=== PATIENT | female | born 1985 | race American Indian/Alaskan Native ===

== ENCOUNTER 2018-01-25 11:26 | Emergency (ER) | payer BC ==
[2018-01-25] MEDS ORDERED: CATAPRES PO ONE (12:35)
[2018-01-25 13:08] LABS: Basophils % (Auto) 0.6 % (0.0-1.8); Eosinophils # (Auto) 0.1 K/mm3 (0.0-0.4); Eosinophils % (Auto) 1.6 % (0.0-4.3); Hematocrit 35.1 % (30.3-42.9); Hemoglobin 11.9 gm/dl (10.1-14.3); Lymphocytes % (Auto) 32.1 % (13.4-35.0); Mean Corpuscular HGB Conc 34 % (30-34); Mean Corpuscular Hemoglobin 29 pg (28-32); Mean Corpuscular Volume 84 fl (79-97); Monocytes # (Auto) 0.4 K/mm3 (0.0-0.8); Monocytes % (Auto) 5.8 % (0.0-7.3); Platelet Count 267 K/mm3 (140-440); Red Blood Count 4.17 M/mm3 (3.65-5.03); Red Cell Distribution Width 15.9 % (13.2-15.2)
[2018-01-25 13:18] LABS: INR 0.86 (0.87-1.13)
[2018-01-25 13:19] LABS: Partial Thromboplastin Time 31.9 Sec. (24.2-36.6)
[2018-01-25 13:28] LABS: Alanine Aminotransferase 11 units/L (7-56); Albumin 4.4 g/dL (3.9-5); BUN/Creatinine Ratio 16; Blood Urea Nitrogen 11 mg/dL (7-17); Calcium 9.5 mg/dL (8.4-10.2); Hemolysis Index 61
[2018-01-25 13:36] LABS: Bilirubin,Direct < 0.2 mg/dL (0-0.2)
--- NOTE | 2018-01-25 15:41 | Emergency Department Report ---
Blank Doc - Documentation Documentation: 32 yo female with a past medical history of hypertension presents to the hospital complaining of dizziness and headache since yesterday. Patient describes it as a spinning sensation. She denies nausea, vomiting, focal weakness, focal numbness. Patient complain of a headache that resolved after Clonine 0.2 mg prior to my evaluation. Patient also has a second complaint of vaginal spotting, cramping, and bleeding despite completing a normal menstral cylce earlier this month. labs reviewed test pending Clonidine received 3 hour prior repeat bp pending ct head pending (awaiting result) midlevel to follow
[2018-01-25 16:02] LABS: HCG Qualitative,Urine Positive (Negative)
[2018-01-25 17:31] LABS: Bacteria,Urine 1+ /HPF (Negative); Bilirubin,Urine NEG (Negative); Blood,Urine MOD (Negative); Color,Urine Yellow (Yellow); Mucus,Urine FEW /HPF; Protein,Urine <15 mg/dL mg/dL (Negative); Urobilinogen,Urine < 2.0 mg/dL (<2.0)
--- NOTE | 2018-01-25 17:51 | Emergency Department Report ---
ED HPI - General Chief complaint: Dizziness Stated complaint: DIZZY Time Seen by Provider: 01/25/18 15:24 Source: patient Mode of arrival: Ambulatory Limitations: No Limitations - History of Present Illness Initial comments: This is a 32-year-old female nontoxic, well nourished in appearance, no acute signs of distress presents to the ED with c/o of vaginal bleeding with abdominal cramping x2 days. Patient stated that her main complaint was headache with dizziness but stated that headache has subsided after medications in the ED. Patient denies thunderclap headache. Denies any head trauma. Described headache as aching diffusely been resolved. Patient denies any blurry vision or visual changes. Patient stated yesterday she noticed some spotting and today had spotting all day. Patient denies any abdominal or pelvic pain. Patient denies any nausea, vomiting, chest pain, shortness of breathe, fever, chills, headache, stiff neck, numbness, tingling. Patient denies any urinary symptoms. Patient states allergies to Cephalexin and griseofulvin. PMH includes HTN which she has not taken her medication for 7 months. MD Complaint: abdominal pain, vaginal bleeding -: days(s) (2) Location: pelvis Radiation: none Severity: mild Severity scale (0 -10): 3 Quality: cramping Consistency: constant Improves with: none Worsens with: none Associated symptoms: vaginal bleeding. denies: nausea/vomiting, vaginal discharge, abdominal pain, dysuria, headache, vision changes, malaise, dysparuenia, rash, seizure, shortness of breath, syncope, weakness Vaginal bleeding: light :: Yes Pre-winnie care: none - Related Data : 4 Para: 6 Previous Rx's Medication Instructions Recorded Last Taken Type Labetalol [Normodyne TAB] 100 mg PO BID #60 tablet 01/25/18 Unknown Rx Allergies Allergy/AdvReac Type Severity Reaction Status Date / Time cephalexin [From Keflex] Allergy Swelling Verified 01/25/18 12:17 [email or web address] Allergy Swelling Verified 01/25/18 12:17 ED Review of Systems ROS: Stated complaint: DIZZY Other details as noted in HPI Constitutional: denies: chills, fever Eyes: denies: eye pain, eye discharge, vision change ENT: denies: ear pain, throat pain Respiratory: denies: cough, shortness of breath, wheezing Cardiovascular: denies: chest pain, palpitations Endocrine: no symptoms reported Gastrointestinal: abdominal pain. denies: nausea, diarrhea Genitourinary: denies: urgency, dysuria, discharge Musculoskeletal: denies: back pain, joint swelling, arthralgia Skin: denies: rash, lesions Neurological: denies: headache, weakness, paresthesias Psychiatric: denies: anxiety, depression Hematological/Lymphatic: denies: easy bleeding, easy bruising ED Past Medical Hx - Past Medical History Previous Medical History?: Yes Hx Hypertension: Yes Additional medical history: Vaginal delivery x 4 - Surgical History Past Surgical History?: No - Social History Smoking Status: Current Every Day Smoker Substance Use Type: Alcohol, Prescribed - Medications Home Medications: Home Medications Medication Instructions Recorded Confirmed Last Taken Type Labetalol [Normodyne TAB] 100 mg PO BID #60 tablet 01/25/18 Unknown Rx ED Physical Exam - General Limitations: No Limitations General appearance: alert, in no apparent distress - Head Head exam: Present: atraumatic, normocephalic - Eye Eye exam: Present: normal appearance Pupils: Present: normal accommodation - ENT ENT exam: Present: normal exam, mucous membranes moist - Neck Neck exam: Present: normal inspection, full ROM. Absent: tenderness, meningismus, lymphadenopathy - Respiratory Respiratory exam: Present: normal lung sounds bilaterally. Absent: respiratory distress, wheezes, rales, rhonchi, stridor, chest wall tenderness, accessory muscle use, decreased breath sounds, prolonged expiratory - Cardiovascular Cardiovascular Exam: Present: regular rate, normal rhythm, normal heart sounds. Absent: bradycardia, tachycardia, irregular rhythm, systolic murmur, diastolic murmur, rubs, gallop - GI/Abdominal GI/Abdominal exam: Present: soft, normal bowel sounds. Absent: distended, tenderness, guarding, rebound, rigid, diminished bowel sounds - Rectal Rectal exam: Present: deferred - Extremities Exam Extremities exam: Present: normal inspection, full ROM, normal capillary refill - Back Exam Back exam: Present: normal inspection, full ROM. Absent: tenderness, CVA tenderness (R), CVA tenderness (L), paraspinal tenderness, vertebral tenderness - Neurological Exam Neurological exam: Present: alert, oriented X3, CN II-XII intact, normal gait - Expanded Neurological Exam Expanded Patient oriented to: Present: person, place, time Cranial nerves: EOM's Intact: Normal, Gag Reflex: Normal, Facial Sensation: Normal Cerebellar function: Finger to Nose: Normal Upper motor neuron: Pronator Drift: Normal, Sensory Extinction: Normal Sensory exam: Upper Extremity Light Touch: Normal, Upper Extremity Pin Prick: Normal, Upper Extremity Temperature: Normal, UE 2 Point Discrimination: Normal, Lower Extremity Light Touch: Normal, Lower Extremity Pin Prick: Normal, Lower Extremity Temperature: Normal, LE 2 Point Discrimination: Normal Motor strength exam: RUE: 5, LUE: 5, RLE: 5, LLE: 5 Best Eye Response ([place]): (4) open spontaneously Best Motor Response ([place]): (6) obeys commands Best Verbal Response ([place]): (5) oriented Kaleb Total: 15 - Psychiatric Psychiatric exam: Present: normal affect, normal mood - Skin Skin exam: Present: warm, dry, intact, normal color. Absent: rash ED Course Vital Signs 01/25/18 01/25/18 01/25/18 12:17 12:39 14:07 Temperature 98.7 F 97.7 F Pulse Rate 74 74 64 Respiratory 20 18 Rate Blood Pressure 197/131 197/131 Blood Pressure 157/117 [Left] O2 Sat by Pulse 99 Oximetry 01/25/18 17:30 Temperature 98.8 F Pulse Rate 88 Respiratory 18 Rate Blood Pressure Blood Pressure 162/91 [Left] O2 Sat by Pulse 98 Oximetry - Reevaluation(s) Reevaluation #1: 01/25/18 17:56 Patient is speaking in full sentences with no signs of distress noted. - Consultations Consultation #1: 01/25/18 17:57 Patient has been consulted with Dr. Paredes about patient history, physical exam, and labs/US report and examined and screened patient and agrees to ED plan of care and discharge plan of care. Consultation #2: 01/25/18 19:43 King Samuel from [employer] [facility] consulted but no answer but his business support manager Suzanne Sands was discussed with about patient history, physical exam, and labs /US report and stated it is okay to discharge patient on Labetolol and f/u in 2 days for repeat HCG. ED Medical Decision Making - Lab Data Result diagrams: 01/25/18 13:01 01/25/18 13:01 - Medical Decision Making This is a 32-year-old female presents with threatened miscarriage and HTN. Patient is stable and was examined by me and Dr. Paredes. Normal abdominal exam. US OB obtained and dictated by the radiologist. Quantative serum test obtained. Patient is neurologically stable. There is no stiff neck or neck pain. Vital signs are stable. Patient is afebrile. Headache subsided. Blood pressure decreased after treatment. Patient notified of the US report with no questions noted by the patient. Patient was instructed to return in 2 days to follow up with a PODIATRIST ASSISTANT or to emergency room for a reevaluation of serum quantative test with possible ultrasound. RH factor positive. Labs within normal limits. EKG normal sinus rhythm. I will start patient on Labetolol 100 mg BID. PAtient was instructed to keep a daily dairy of blood pressure and present it to primary care doctor. UA normal. Patient was referred to Follow-up with a PODIATRIST ASSISTANT in 3-5 days or if symptoms worsen and continue return to emergency room as soon as possible. At time of discharge, the patient does not seem toxic or ill in appearance. No acute signs of distress noted. Patient agrees to discharge treatment plan of care. No further questions noted by the patient. Critical care attestation.: If time is entered above; I have spent that time in minutes in the direct care of this critically ill patient, excluding procedure time. ED Disposition Clinical Impression: Threatened miscarriage Hypertension Qualifiers: Hypertension type: unspecified Qualified Code(s): I10 - Essential (primary) hypertension Disposition: DC-01 TO HOME OR SELFCARE Is pt being admited?: No Does the pt Need Aspirin: No Condition: Stable Instructions: Labetalol (By mouth), Threatened Miscarriage (ED), Hypertension ( ED) Additional Instructions: Follow-up with a PODIATRIST ASSISTANT and primary care doctor doctor in 2 days or come to the ED for a repeat quantitative test/possible ultrasound or if symptoms worsen and continue return to emergency room as soon as possible. Keep a daily diary of your blood pressure and present it to your primary care doctor in 2 days. Prescriptions: Labetalol [Normodyne TAB] 100 mg PO BID #60 tablet Referrals: PRIMARY JOSE, [Primary Care Provider] - 3-5 Days CAMRON SHOEMAKER MD [Staff Physician] - 3-5 Days LOLA HAYWARD MD [Staff Physician] - 3-5 Days [facility] [Provider Group] - 3-5 Days [facility] [Outside] - 3-5 Days Forms: Work/School Release Form(ED)
--- NOTE | 2018-01-25 17:51 | Ultrasound Report ---
FINAL REPORT EXAM: US OB < = 14 WEEKS FETUS HISTORY: vag spotting, LMP 01/08/2018 with clinical age 2 weeks 3 days and EDC 10/15/2018. Beta HCG quantitation 2282 corresponding to 4-5 weeks TECHNIQUE: Ultrasound of the pelvis using transabdominal and transvaginal imaging PRIORS: None. FINDINGS: Uterus: Uterus is enlarged in size and normal and homogeneous in echogenicity without focal fibroid formation. The uterus measures 9.8 x 5.4 x 6.5 cm in size. No evidence for intrauterine is identified. Endometrial stripe: Normal and uniform in thickness measuring 7.7 mm. No fluid in the endometrial canal is seen. Ovaries: Both ovaries appear normal in size and echogenicity with normal blood flow bilaterally. The right ovary measures 2.8 x 2.1 x 2.0 cm and the left ovary measures 2.9 x 2.5 x 3.4 cm in size. In the left ovary, there is a complex cystic focus measuring 1.9 x 1.7 x 1.5 cm. This demonstrates a partial "ring of fire" appearance on color flow and probably represents a corpus luteum. However, without the presence of an intrauterine , ectopic is not excluded. Serial quantitative beta HCG levels may be helpful to exclude ectopic . Other: There is no evidence for solid adnexal mass or free fluid in the cul-de-sac seen. IMPRESSION: 1. No evidence for intrauterine identified. 2. Cystic focus in the left ovary which has the ultrasound appearance suggesting a probable corpus luteum. However, with a lack of intrauterine , ectopic is not entirely excluded. Serial quantitative beta HCG levels may be helpful. 3. No evidence for free fluid in the cul-de-sac is seen.
[2018-01-26 03:30] VITALS: BP 149/99
== END 2018-01-25 20:05 | disposition home or self-care (01) ==
LOC: ED 14:08
DX: O20.0 Threatened abortion (principal); I10 Essential (primary) hypertension; F17.200 Nicotine dependence, unspecified, uncomplicated; Z88.1 Allergy status to other antibiotic agents; Z88.8 Allergy status to other drugs, medicaments and biological substances; Z3A.01 Less than 8 weeks gestation of pregnancy
CPT/HCPCS: 36415; 76801; 76817; 80048; 80074; 81001; 81025; 83880; 84484; 84702; 85025; 85610; 85670; 85730; 86900; 86901; 93005; 93010; 99285

== ENCOUNTER → 2018-02-09 02:32 | Emergency (ER) | payer BC | END | disposition left against medical advice (07) | LOC: ED 02:32 | DX: R10.9 Unspecified abdominal pain (principal); Z53.21 Procedure and treatment not carried out due to patient leaving prior to being seen by health care provider ==

== ENCOUNTER 2018-03-30 21:44 | Emergency (ER) | payer BC | END 2018-03-30 22:20 | disposition left against medical advice (07) | LOC: ED 21:44 | DX: M79.1 Myalgia (principal); R07.0 Pain in throat; R05 Cough; Z88.1 Allergy status to other antibiotic agents; Z53.21 Procedure and treatment not carried out due to patient leaving prior to being seen by health care provider ==

== ENCOUNTER 2018-10-26 19:23 | Emergency (ER) | payer BC | END 2018-10-26 21:17 | disposition left against medical advice (07) | LOC: ED 19:23 | DX: R11.2 Nausea with vomiting, unspecified (principal); R19.7 Diarrhea, unspecified; R61 Generalized hyperhidrosis; Z53.21 Procedure and treatment not carried out due to patient leaving prior to being seen by health care provider ==

== ENCOUNTER 2018-12-06 20:05 | Emergency (ER) | payer BC ==
[2018-12-06 20:33] VITALS: BP 144/87
--- NOTE | 2018-12-06 20:34 | Emergency Department Report ---
Blank Doc - Documentation Documentation: This is a 33-year-old female that presents with vaginal bleeding and irrigation. This initial assessment/diagnostic orders/clinical plan/treatment(s) is/are subject to change based on patient's health status, clinical progression and re- assessment by fellow clinical providers in the ED. Further treatment and workup at subsequent clinical providers discretion. Patient/guardians urged not to elope from the ED as their condition may be serious if not clinically assessed and managed. Initial orders include: 1- Patient sent to [facility] for further evaluation and treatment 2- labs 3- UA
[2018-12-06 21:46] LABS: Basophils % (Auto) 0.6 % (0.0-1.8); Eosinophils # (Auto) 0.1 K/mm3 (0.0-0.4); Eosinophils % (Auto) 1.4 % (0.0-4.3); Hematocrit 35.4 % (30.3-42.9); Hemoglobin 11.9 gm/dl (10.1-14.3); Lymphocytes # (Auto) 2.2 K/mm3 (1.2-5.4); Lymphocytes % (Auto) 34.6 % (13.4-35.0); Mean Corpuscular HGB Conc 34 % (30-34); Mean Corpuscular Volume 88 fl (79-97); Monocytes # (Auto) 0.5 K/mm3 (0.0-0.8); Monocytes % (Auto) 7.2 % (0.0-7.3); Platelet Count 254 K/mm3 (140-440); Red Blood Count 4.02 M/mm3 (3.65-5.03); Red Cell Distribution Width 14.9 % (13.2-15.2)
[2018-12-06 22:16] LABS: BUN/Creatinine Ratio 13; Blood Urea Nitrogen 10 mg/dL (7-17); Calcium 9.3 mg/dL (8.4-10.2); Hemolysis Index 5
[2018-12-06 23:13] LABS: Bacteria,Urine 1+ /HPF (Negative); Bilirubin,Urine NEG (Negative); Blood,Urine LG (Negative); Color,Urine Amber (Yellow); Mucus,Urine 2+ /HPF; Urobilinogen,Urine < 2.0 mg/dL (<2.0)
--- NOTE | 2018-12-06 23:49 | Emergency Department Report ---
ED Female HPI - General Chief complaint: Urogenital-Female Stated complaint: VAGINAL IRRATATION/BLEEDING Time Seen by Provider: 12/06/18 20:33 Source: patient Mode of arrival: Ambulatory Limitations: No Limitations - History of Present Illness Initial comments: This is a 33-year-old female that presents with vaginal bleeding and irrigation. LMP 1 month ago, pt has same multiple year partner no concern for STI, states I think I have a yeast infection, " my cylce due in a couple of days" there is no n/v no back pain fever or chills, noted vaginal spotting started yesterday. MD Complaint: vaginal bleeding, vaginal discharge Onset/Timin -: days(s) Quality: cramping Improves with: none Worsens with: none Are you Now?: No Last Menstrual Period: 11/05/18 EDC: 08/12/19 Associated Symptoms: vaginal discharge, vaginal bleeding, abdominal pain. denies: nausea/vomiting - Related Data Sexually active: Yes : 3 Para: 3 A: 0 Previous Rx's Medication Instructions Recorded Last Taken Type Labetalol [Normodyne TAB] 100 mg PO BID #60 tablet 01/25/18 Unknown Rx Fluconazole [Diflucan TAB] 150 mg PO ONCE #1 tablet 12/06/18 Unknown Rx Nitrofurantoin Monohyd/M-Cryst 100 mg PO BID #14 capsule 12/06/18 Unknown Rx [Macrobid 100 mg Capsule] metroNIDAZOLE [Flagyl] 500 mg PO BID 10 Days #20 tab 12/06/18 Unknown Rx Allergies Allergy/AdvReac Type Severity Reaction Status Date / Time cephalexin [From Keflex] Allergy Swelling Verified 01/25/18 12:17 griseofulvin Allergy Swelling Verified 01/25/18 12:17 ED Review of Systems ROS: Stated complaint: VAGINAL IRRATATION/BLEEDING Other details as noted in HPI Constitutional: denies: chills, fever Eyes: denies: eye pain, eye discharge, vision change ENT: denies: ear pain, throat pain Respiratory: denies: cough, shortness of breath, wheezing Cardiovascular: denies: chest pain, palpitations Endocrine: no symptoms reported Gastrointestinal: denies: abdominal pain, nausea, diarrhea Genitourinary: discharge (white thick ). denies: urgency, dysuria, hematuria, dyspareunia Musculoskeletal: denies: back pain, joint swelling, arthralgia Skin: denies: rash, lesions Neurological: denies: headache, weakness, paresthesias Psychiatric: denies: anxiety, depression Hematological/Lymphatic: denies: easy bleeding, easy bruising ED Past Medical Hx - Past Medical History Hx Hypertension: Yes Additional medical history: Vaginal delivery x 4 - Social History Smoking Status: Never Smoker Substance Use Type: None - Medications Home Medications: Home Medications Medication Instructions Recorded Confirmed Last Taken Type Labetalol [Normodyne TAB] 100 mg PO BID #60 tablet 01/25/18 Unknown Rx Fluconazole [Diflucan TAB] 150 mg PO ONCE #1 tablet 12/06/18 Unknown Rx Nitrofurantoin Monohyd/M-Cryst 100 mg PO BID #14 capsule 12/06/18 Unknown Rx [Macrobid 100 mg Capsule] metroNIDAZOLE [Flagyl] 500 mg PO BID 10 Days #20 tab 12/06/18 Unknown Rx ED Physical Exam - General Limitations: No Limitations General appearance: alert, in no apparent distress - Head Head exam: Present: atraumatic, normocephalic - Eye Eye exam: Present: normal appearance, PERRL, EOMI Pupils: Present: normal accommodation - ENT ENT exam: Present: normal exam, normal orophraynx, mucous membranes moist - Neck Neck exam: Present: normal inspection, full ROM. Absent: tenderness, meningismus, lymphadenopathy, thyromegaly - Respiratory Respiratory exam: Present: normal lung sounds bilaterally. Absent: respiratory distress, wheezes, stridor, chest wall tenderness - Cardiovascular Cardiovascular Exam: Present: regular rate, normal rhythm, normal heart sounds. Absent: systolic murmur, diastolic murmur, rubs, gallop - GI/Abdominal GI/Abdominal exam: Present: soft, normal bowel sounds. Absent: distended, tenderness, guarding, rebound, rigid, bruit, hernia - Rectal Rectal exam: Present: deferred - External exam: Present: normal external exam Speculum exam: Present: erythema, vaginal discharge (white thick cottage cheese appearance mild bleeding no cmt ), vaginal bleeding. Absent: foreign body, tissue, laceration Bi-manual exam: Absent: cervical motion tendernes - Extremities Exam Extremities exam: Present: normal inspection, full ROM, normal capillary refill. Absent: tenderness - Back Exam Back exam: Present: normal inspection. Absent: tenderness, CVA tenderness (R), CVA tenderness (L), rash noted - Neurological Exam Neurological exam: Present: alert, oriented X3, CN II-XII intact, normal gait - Psychiatric Psychiatric exam: Present: normal affect, normal mood - Skin Skin exam: Present: warm, dry, intact, normal color. Absent: rash ED Course Vital Signs 12/06/18 12/06/18 20:28 20:45 Temperature 98.0 F 98 F Pulse Rate 81 75 Respiratory 18 18 Rate Blood Pressure 144/87 144/87 O2 Sat by Pulse 100 100 Oximetry ED Medical Decision Making - Lab Data Result diagrams: 12/06/18 21:16 12/06/18 21:16 Labs 12/06/18 12/06/18 12/06/18 21:16 21:16 21:16 WBC 6.4 RBC 4.02 Hgb 11.9 Hct 35.4 MCV 88 MCH 30 MCHC 34 RDW 14.9 Plt Count 254 Lymph % (Auto) 34.6 Greenlee % (Auto) 7.2 Eos % (Auto) 1.4 Baso % (Auto) 0.6 Lymph # 2.2 Greenlee # 0.5 Eos # 0.1 Baso # 0.0 Seg Neutrophils % 56.2 Seg Neutrophils # 3.6 Sodium 145 Potassium 3.8 Chloride 106.2 Carbon Dioxide 28 Anion Gap 15 BUN 10 Creatinine 0.8 Estimated GFR > 60 BUN/Creatinine Ratio 13 Glucose 107 H Calcium 9.3 HCG, Qual Negative Urine Color Urine Turbidity Urine pH Ur Specific [place] Urine Protein Urine Glucose (UA) Urine Ketones Urine Blood Urine Nitrite Urine Bilirubin Urine Urobilinogen Ur Leukocyte Esterase Urine WBC (Auto) Urine RBC (Auto) U Epithel Cells (Auto) Urine Bacteria (Auto) Urine Mucus Urine Yeast (Budding) 12/06/18 Unknown WBC RBC Hgb Hct MCV MCH MCHC RDW Plt Count Lymph % (Auto) Greenlee % (Auto) Eos % (Auto) Baso % (Auto) Lymph # Greenlee # Eos # Baso # Seg Neutrophils % Seg Neutrophils # Sodium Potassium Chloride Carbon Dioxide Anion Gap BUN Creatinine Estimated GFR BUN/Creatinine Ratio Glucose Calcium HCG, Qual Urine Color Мария Urine Turbidity Cloudy Urine pH 6.0 Ur Specific [place] 1.029 Urine Protein 30 mg/dl Urine Glucose (UA) Neg Urine Ketones Neg Urine Blood Lg Urine Nitrite Neg Urine Bilirubin Neg Urine Urobilinogen < 2.0 Ur Leukocyte Esterase Sm Urine WBC (Auto) 8.0 H Urine RBC (Auto) 172.0 U Epithel Cells (Auto) 58.0 H Urine Bacteria (Auto) 1+ Urine Mucus 2+ Urine Yeast (Budding) 1+ - Medical Decision Making UA positive for white blood cells and leukocytes vaginal exam consistent with BV vanginitis plan Macrobid ,Flagyl, Diflucan patient states antibiotic use cause yeast infection ,GC chlamydia pending , pt request call if cultures are positive but she can no longer wait for results. pt will follow up with [facility] in 2-3 days, will call if results are positive pt verbalized agreement and understanding of discharge plan. Critical care attestation.: If time is entered above; I have spent that time in minutes in the direct care of this critically ill patient, excluding procedure time. ED Disposition Clinical Impression: Bacterial vaginitis, Vaginal melany UTI (urinary tract infection) Qualifiers: Urinary tract infection type: acute cystitis Hematuria presence: without hematuria Qualified Code(s): N30.00 - Acute cystitis without hematuria Disposition: TO HOME OR SELFCARE Is pt being admited?: No Does the pt Need Aspirin: No Condition: Stable Instructions: Bacterial Vaginosis (ED), Vaginitis (ED), Urinary Tract Infection in Women (ED) Prescriptions: Fluconazole [Diflucan TAB] 150 mg PO ONCE #1 tablet metroNIDAZOLE [Flagyl] 500 mg PO BID 10 Days #20 tab Nitrofurantoin Monohyd/M-Cryst [Macrobid 100 mg Capsule] 100 mg PO BID #14 capsule Referrals: CAROLE HO MD [Primary Care Provider] - 3-5 Days Forms: Work/School Release Form(ED) Time of Disposition: 23:59
== END 2018-12-07 00:12 | disposition home or self-care (01) ==
LOC: ED 20:05
DX: N76.0 Acute vaginitis (principal); B96.89 Other specified bacterial agents as the cause of diseases classified elsewhere; B37.3 Candidiasis of vulva and vagina; N39.0 Urinary tract infection, site not specified; I10 Essential (primary) hypertension; Z88.1 Allergy status to other antibiotic agents; Z88.8 Allergy status to other drugs, medicaments and biological substances
CPT/HCPCS: 36415; 80048; 81001; 84703; 85025; 87210; 87591; 99284

== ENCOUNTER 2019-01-23 15:44 | Emergency (ER) | payer BC ==
[2019-01-23] MEDS ORDERED: ZOFRAN ODT PO ONE (15:53)
--- NOTE | 2019-01-23 15:53 | Emergency Department Report ---
Blank Doc - Documentation Documentation: pt presents with N/V that began today +, 7 weeks ago has not taken anything SAWDUST DRIER: My SAWDUST DRIER no dysuria no diarrhea no fever PMHx HTN former smoker former drinker no drug use
[2019-01-23] MEDS ORDERED: ZOFRAN ODT ONE (15:56)
[2019-01-23 16:39] LABS: Bacteria,Urine 1+ /HPF (Negative); Bilirubin,Urine NEG (Negative); Blood,Urine NEG (Negative); Color,Urine Amber (Yellow); Mucus,Urine 3+ /HPF
[2019-01-23] MEDS ORDERED: NACL 0.9% 1000 ML 1,000 ML IV ONE (18:47)
--- NOTE | 2019-01-23 19:26 | Emergency Department Report ---
<KATJA CROCKETT - Last Filed: 01/23/19 19:23> ED General Adult HPI - General Chief complaint: Nausea/Vomiting/Diarrhea Stated complaint: 7 WEEKS /VOMITING Time Seen by Provider: 01/23/19 15:52 Source: patient Mode of arrival: Ambulatory Limitations: No Limitations - History of Present Illness Initial comments: Patient is a 33-year-old female who is approximately 7 weeks who is presenting with nausea vomiting. Patient works here in [place] and states she vomited multiple times today. Patient states that originally was food contents but then there is some small streaks of blood. Patient has not had any issues with morning sickness this . Patient also states she has some mild lower abdominal crampiness and some spotting for the last 3 days. Patient did see her DIETITIAN when spotting began and was told that this was likely normal. Patient had ultrasound week and half ago which did show intrauterine . Severity scale (0 -10): 2 - Related Data Previous Rx's Medication Instructions Recorded Last Taken Type Labetalol [Normodyne TAB] 100 mg PO BID #60 tablet 01/25/18 Unknown Rx Fluconazole [Diflucan TAB] 150 mg PO ONCE #1 tablet 12/06/18 Unknown Rx Nitrofurantoin Monohyd/M-Cryst 100 mg PO BID #14 capsule 12/06/18 Unknown Rx [Macrobid 100 mg Capsule] metroNIDAZOLE [Flagyl] 500 mg PO BID 10 Days #20 tab 12/06/18 Unknown Rx Promethazine [Phenergan] 25 mg PO Q6HR PRN #10 tab 01/23/19 Unknown Rx Allergies Allergy/AdvReac Type Severity Reaction Status Date / Time cephalexin [From Keflex] Allergy Swelling Verified 01/23/19 15:46 [email or web address] Allergy Swelling Verified 01/23/19 15:46 ED Review of Systems Comment: All other systems reviewed and negative ED Past Medical Hx - Past Medical History Hx Hypertension: Yes Additional medical history: Vaginal delivery x 4 - Social History Smoking Status: Former Smoker Substance Use Type: None - Medications Home Medications: Home Medications Medication Instructions Recorded Confirmed Last Taken Type Labetalol [Normodyne TAB] 100 mg PO BID #60 tablet 01/25/18 Unknown Rx Fluconazole [Diflucan TAB] 150 mg PO ONCE #1 tablet 12/06/18 Unknown Rx Nitrofurantoin Monohyd/M-Cryst 100 mg PO BID #14 capsule 12/06/18 Unknown Rx [Macrobid 100 mg Capsule] metroNIDAZOLE [Flagyl] 500 mg PO BID 10 Days #20 tab 12/06/18 Unknown Rx Promethazine [Phenergan] 25 mg PO Q6HR PRN #10 tab 01/23/19 Unknown Rx ED Physical Exam - General Limitations: No Limitations General appearance: alert, in no apparent distress - Head Head exam: Present: atraumatic, normocephalic - Eye Eye exam: Present: normal appearance - ENT ENT exam: Present: mucous membranes moist - Neck Neck exam: Present: normal inspection - Respiratory Respiratory exam: Present: normal lung sounds bilaterally. Absent: respiratory distress, wheezes, rales, rhonchi - Cardiovascular Cardiovascular Exam: Present: regular rate, normal rhythm. Absent: systolic murmur, diastolic murmur, rubs, gallop - GI/Abdominal GI/Abdominal exam: Present: soft, normal bowel sounds. Absent: distended, tenderness, guarding, rebound - Extremities Exam Extremities exam: Present: normal inspection - Back Exam Back exam: Present: normal inspection - Neurological Exam Neurological exam: Present: alert, oriented X3 - Psychiatric Psychiatric exam: Present: normal affect, normal mood - Skin Skin exam: Present: warm, dry, intact, normal color. Absent: rash ED Course - Reevaluation(s) Reevaluation #1: 01/23/19 19:25 Patient receives Zofran at triage and has not had any additional episodes of vomiting. Patient is to be hydrated and the patient will have ultrasound because of the vaginal spotting ED Disposition Clinical Impression: Hyperemesis gravidarum, Threatened miscarriage, Hematemesis Disposition: DC- TO HOME OR SELFCARE Condition: Stable Instructions: Hyperemesis Gravidarum (ED), Threatened Miscarriage (ED) Prescriptions: Promethazine [Phenergan] 25 mg PO Q6HR PRN #10 tab PRN Reason: Nausea Forms: Work/School Release Form(ED) <FEDERICO CROCKETT - Last Filed: 01/23/19 20:51> ED Review of Systems ROS: Stated complaint: 7 WEEKS /VOMITING Other details as noted in HPI ED Course Vital Signs 01/23/19 01/23/19 15:52 19:10 Temperature 98.7 F 98.2 F Pulse Rate 83 86 Respiratory 20 18 Rate Blood Pressure 163/85 137/86 [Right] O2 Sat by Pulse 100 100 Oximetry ED Medical Decision Making - Medical Decision Making 1. Hyperemesis gravidarum received IV fluid and anti-emetics in ED. 2. Hematemesis with active GI bleeding, 3. Threateneded miscarriage, IUP viable with cardiac activity, blood type O+ Given reassurance and discharged home with prescription for promethazine followed at my DIETITIAN Critical care attestation.: If time is entered above; I have spent that time in minutes in the direct care of this critically ill patient, excluding procedure time. ED Disposition Is pt being admited?: No Does the pt Need Aspirin: No
[2019-01-23 21:20] LABS: Bacteria,Urine 1+ /HPF (Negative); Bilirubin,Urine NEG (Negative); Blood,Urine NEG (Negative); Color,Urine Yellow (Yellow); Mucus,Urine 1+ /HPF; Protein,Urine <15 mg/dL mg/dL (Negative); Urobilinogen,Urine < 2.0 mg/dL (<2.0)
--- NOTE | 2019-01-23 21:27 | Ultrasound Report ---
PROCEDURE: US OB <= 14 WEEKS FETUS TECHNIQUE: Transabdominal OB ultrasound was performed. Color Doppler imaging was also utilized for t he exam. HISTORY: preg with abd pain/bleeding COMPARISONS: Transvaginal OB ultrasound also performed today. FINDINGS: The images from both a transabdominal and transvaginal OB ultrasound performed today were used to gen erate this report. There is a single living intrauterine gestation visualized with a heart rate of 130 bpm. Yolk s ac and pole are visualized. [place]-rump length measurement 9.0 mm corresponds to an age of 6 wee ks 6 days. Fetus currently too small to assess anatomy. No gross abnormality is seen. No free fluid i s seen in the cul-de-sac. No evidence of subchorionic hemorrhage. Amount of amniotic fluid appears no rmal. Shape of the gestational sac appears normal. Left ovary is unremarkable measuring 2.8 x 1.6 x 2.5 cm. The left ovary measures 4.4 x 2.3 x 3.5 cm a nd contains a 2.8 cm nodule with heterogeneous areas of decreased and intermediate echogenicity sugge sting corpus luteum of . IMPRESSION: Single living intrauterine visualized. By crown-rump length measurements the estimated age is 6 weeks 6 days. This places the EDC at 09/12/2019 +/- 0.5 weeks. Fetus currently too small to assess anatomy. No gross abnormalities is visualized. Mixed echogenic nodule visualized right ovary suggesting corpus luteum of . No evidence of subchorionic hemorrhage.. This document is electronically signed by Douglas Demarco MD., Jan 23 2019 09:25:42 PM TUNDE
--- NOTE | 2019-01-23 21:28 | Ultrasound Report ---
PROCEDURE: US OB TRANSVAGINAL TECHNIQUE: Transvaginal scanning was performed to evaluate well-being. Doppler evaluation was also performed to obtain heart beat. HISTORY: preg with abd pain/bleeding COMPARISONS: Transabdominal OB ultrasound also performed today. FINDINGS: The images from both a transabdominal and transvaginal OB ultrasound performed today were used to gen erate this report. There is a single living intrauterine gestation visualized with a heart rate of 130 bpm. Yolk s ac and pole are visualized. [place]-rump length measurement 9.0 mm corresponds to an age of 6 wee ks 6 days. Fetus currently too small to assess anatomy. No gross abnormality is seen. No free fluid i s seen in the cul-de-sac. Subtle hypoechoic density seen surrounding the gestational sac on the trans abdominal OB ultrasound however not confirmed with a transvaginal ultrasound. No evidence of subchori onic hemorrhage. Amount of amniotic fluid appears normal. Shape of the gestational sac appears normal . Left ovary is unremarkable measuring 2.8 x 1.6 x 2.5 cm. The left ovary measures 4.4 x 2.3 x 3.5 cm a nd contains a 2.8 cm nodule with heterogeneous areas of decreased and intermediate echogenicity sugge sting corpus luteum of . IMPRESSION: Single living intrauterine visualized. By crown-rump length measurements the estimated age is 6 weeks 6 days. This places the EDC at 09/12/2019 +/- 0.5 weeks. Fetus currently too small to assess anatomy. No gross abnormalities is visualized. Mixed echogenic nodule visualized right ovary suggesting corpus luteum of . No evidence of subchorionic hemorrhage.. This document is electronically signed by Douglas Demarco MD., Jan 23 2019 09:26:36 PM ET
[2019-01-23 23:03] VITALS: BP 142/92
== END 2019-01-23 23:02 | disposition home or self-care (01) ==
LOC: ED 15:44
DX: O21.0 Mild hyperemesis gravidarum (principal); O20.0 Threatened abortion; O16.1 Unspecified maternal hypertension, first trimester; Z87.891 Personal history of nicotine dependence; Z3A.01 Less than 8 weeks gestation of pregnancy; Z88.8 Allergy status to other drugs, medicaments and biological substances; Z88.5 Allergy status to narcotic agent
CPT/HCPCS: 36415; 76801; 76817; 81001; 84702; 96360; 99284; J7030; Q0162

== ENCOUNTER 2019-02-04 04:06 | Emergency (ER) | payer BC ==
[2019-02-04 05:02] LABS: Basophils % (Auto) 0.5 % (0.0-1.8); Eosinophils # (Auto) 0.1 K/mm3 (0.0-0.4); Eosinophils % (Auto) 1.3 % (0.0-4.3); Hematocrit 31.8 % (30.3-42.9); Hemoglobin 10.9 gm/dl (10.1-14.3); Lymphocytes # (Auto) 2.3 K/mm3 (1.2-5.4); Lymphocytes % (Auto) 34.9 % (13.4-35.0); Mean Corpuscular HGB Conc 34 % (30-34); Mean Corpuscular Volume 89 fl (79-97); Monocytes # (Auto) 0.5 K/mm3 (0.0-0.8); Monocytes % (Auto) 6.9 % (0.0-7.3); Platelet Count 231 K/mm3 (140-440); Red Blood Count 3.58 M/mm3 (3.65-5.03); Red Cell Distribution Width 14.5 % (13.2-15.2)
--- NOTE | 2019-02-04 06:50 | Emergency Department Report ---
ED HPI - General Chief complaint: Vaginal Bleeding Stated complaint: BLEEDING CRAMPING ABD PAIN 10 WEEKS Time Seen by Provider: 02/04/19 06:16 Source: patient Mode of arrival: Ambulatory Limitations: No Limitations - History of Present Illness Initial comments: Patient is a 33-year-old female that presents to emergency with complaints of lower abdominal cramping and vaginal spotting. Patient states she is 9 weeks . Patient denies large amounts of bleeding from her vagina. Patient states he just a very small amount. Patient has not soaked through even one pad. Patient states he has had a few spots on the pad. Patient denies fever chills. Patient is also complaining of nausea and vomiting. Patient states she called her CONCIERGE RECEPTIONIST told her to come to the ER to be evaluated. Patient states her pain is a cramping sensation. Patient states she started having shot at her [facility]ER[facility] RECEPTIONIST office. 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 denies: dysuria, headache, vision changes, malaise, dysparuenia, rash, seizure, shortness of breath, syncope, weakness Vaginal bleeding: light :: Yes Number of weeks : 9 OB History - Current : no complications OB History - Previous Pregnancies: no complications Pre-winnie care: followed by OB, previous ultrasound confi - Related Data : 5 Para: 4 Previous Rx's Medication Instructions Recorded Last Taken Type Labetalol [Labetalol 100mg TAB] 100 mg PO BID #60 tablet 01/25/18 Unknown Rx Fluconazole [Diflucan TAB] 150 mg PO ONCE #1 tablet 12/06/18 Unknown Rx Nitrofurantoin Monohyd/M-Cryst 100 mg PO BID #14 capsule 12/06/18 Unknown Rx [Macrobid 100 mg Capsule] metroNIDAZOLE [Flagyl] 500 mg PO BID 10 Days #20 tab 12/06/18 Unknown Rx Promethazine [Phenergan] 25 mg PO Q6HR PRN #10 tab 01/23/19 Unknown Rx Ondansetron [Zofran Odt] 4 mg PO Q6HR PRN #20 tab.rapdis 02/04/19 Unknown Rx Allergies Allergy/AdvReac Type Severity Reaction Status Date / Time cephalexin [From Keflex] Allergy Swelling Verified 01/23/19 15:46 [email or web address] Allergy Swelling Verified 01/23/19 15:46 ED Review of Systems ROS: Stated complaint: BLEEDING CRAMPING ABD PAIN 10 WEEKS Other details as noted in HPI Constitutional: denies: chills, fever Eyes: denies: eye pain, eye discharge, vision change ENT: denies: ear pain, throat pain Respiratory: denies: cough, shortness of breath, wheezing Cardiovascular: denies: chest pain, palpitations Endocrine: no symptoms reported Gastrointestinal: abdominal pain, nausea. denies: vomiting, diarrhea Genitourinary: denies: urgency, dysuria, discharge Musculoskeletal: denies: back pain, joint swelling, arthralgia Skin: denies: rash, lesions Neurological: denies: headache, weakness, paresthesias Psychiatric: denies: anxiety, depression Hematological/Lymphatic: denies: easy bleeding, easy bruising ED Past Medical Hx - Past Medical History Previous Medical History?: Yes Hx Hypertension: Yes Additional medical history: Vaginal delivery x 4 - Surgical History Past Surgical History?: Yes Additional Surgical History: Removal of one tube - Family History Family history: no significant - Social History Smoking Status: Former Smoker Substance Use Type: None - Medications Home Medications: Home Medications Medication Instructions Recorded Confirmed Last Taken Type Labetalol [Labetalol 100mg TAB] 100 mg PO BID #60 tablet 01/25/18 Unknown Rx Fluconazole [Diflucan TAB] 150 mg PO ONCE #1 tablet 12/06/18 Unknown Rx Nitrofurantoin Monohyd/M-Cryst 100 mg PO BID #14 capsule 12/06/18 Unknown Rx [Macrobid 100 mg Capsule] metroNIDAZOLE [Flagyl] 500 mg PO BID 10 Days #20 tab 12/06/18 Unknown Rx Promethazine [Phenergan] 25 mg PO Q6HR PRN #10 tab 01/23/19 Unknown Rx Ondansetron [Zofran Odt] 4 mg PO Q6HR PRN #20 tab.rapdis 02/04/19 Unknown Rx ED Physical Exam - General Limitations: No Limitations General appearance: alert, in no apparent distress - Head Head exam: Present: atraumatic, normocephalic - Eye Eye exam: Present: normal appearance - ENT ENT exam: Present: mucous membranes moist - Neck Neck exam: Present: normal inspection - Respiratory Respiratory exam: Present: normal lung sounds bilaterally. Absent: respiratory distress - Cardiovascular Cardiovascular Exam: Present: regular rate, normal rhythm. Absent: systolic murmur, diastolic murmur, rubs, gallop - GI/Abdominal GI/Abdominal exam: Present: soft, normal bowel sounds. Absent: distended, tenderness, guarding - Extremities Exam Extremities exam: Present: normal inspection - Back Exam Back exam: Present: normal inspection - Neurological Exam Neurological exam: Present: alert, oriented X3 - Psychiatric Psychiatric exam: Present: normal affect, normal mood - Skin Skin exam: Present: warm, dry, intact, normal color. Absent: rash ED Course Vital Signs 02/04/19 02/04/19 02/04/19 04:11 06:38 07:16 Temperature 98.3 F 98.2 F Pulse Rate 75 69 Respiratory 18 17 Rate Blood Pressure 162/95 Blood Pressure 175/102 [Left] O2 Sat by Pulse 100 100 100 Oximetry 02/04/19 02/04/19 02/04/19 07:22 07:39 07:45 Temperature 98.8 F Pulse Rate 70 Respiratory 23 Rate Blood Pressure 147/85 147/85 Blood Pressure 147/85 [Left] O2 Sat by Pulse 100 100 99 Oximetry 02/04/19 02/04/19 02/04/19 08:00 08:15 08:30 Temperature Pulse Rate Respiratory Rate Blood Pressure 166/84 166/84 147/85 Blood Pressure [Left] O2 Sat by Pulse 100 99 99 Oximetry 02/04/19 02/04/19 02/04/19 08:45 09:00 09:15 Temperature Pulse Rate Respiratory Rate Blood Pressure 166/84 142/81 142/81 Blood Pressure [Left] O2 Sat by Pulse 99 99 99 Oximetry 02/04/19 02/04/19 02/04/19 09:30 09:45 10:00 Temperature Pulse Rate Respiratory Rate Blood Pressure 142/81 142/81 157/92 Blood Pressure [Left] O2 Sat by Pulse 100 100 100 Oximetry 02/04/19 02/04/19 02/04/19 10:29 10:31 10:45 Temperature Pulse Rate 68 66 Respiratory 18 18 Rate Blood Pressure 157/92 157/92 157/92 Blood Pressure [Left] O2 Sat by Pulse 100 100 100 Oximetry 02/04/19 11:00 Temperature Pulse Rate 66 Respiratory 18 Rate Blood Pressure 146/80 Blood Pressure [Left] O2 Sat by Pulse 100 Oximetry - Reevaluation(s) Reevaluation #1: Discussed all results with patient. Discussed recommendations by CONCIERGE RECEPTIONIST. Patient stable at discharge. Patient will be discharged home Patient agrees to plan of care. Discussed discharge instructions and precautions with patient. Patient was understanding of all instructions. 02/04/19 09:57 - Consultations Consultation #1: Discussed case with Annel with my CONCIERGE RECEPTIONIST. Annel states the patient is stable for discharge and will need to follow up with them on Thursday. Labor precautions and miscarriage precautions will be given to patient 02/04/19 09:57 ED Medical Decision Making - Lab Data Result diagrams: 02/04/19 04:31 - Radiology Data Radiology results: report reviewed PROCEDURE: US OB <= 14 WEEKS FETUS TECHNIQUE: Transabdominal grayscale, color Doppler and M-mode first trimester ultrasound HISTORY: 10 weeks /bleeding and cramping COMPARISONS: 01/23/2019 FINDINGS: A single living intrauterine is present with recorded cardiac activity 176 bpm and crown- rump length of approximately 2.3 cm corresponding to estimated gestational age of 9 weeks 0 days and delivery date of 09/09/2019. A normal-appearing yolk sac measures approximately 5 mm in diameter. A small perigestational hemorrhage may be present involving less than 25% of the gestational sac surface area. No free fluid in the pelvis. The ovaries are sonographically unremarkable and measures 3.5 x 1.8 x 2.3 cm on the right and 3.6 x 2.2 x 2.5 cm on the left. IMPRESSION: Single living intrauterine with estimated gestational age of 9 weeks 0 days corresponding to delivery date of 09/09/2019. A small perigestational hemorrhage is suggested involving less than 25% of the gestational sac surface area. - Medical Decision Making Patient is a 33-year-old female that presents emergency room with lower abdominal cramping and vaginal spotting. Patient ultrasound which shows a single IUP with a subchorionic hemorrhage. I counseled the patient's CONCIERGE RECEPTIONIST office and discussed the case with them. They feel the patient is safe for discharge. Patient was discharged home. Patient is stable for discharge. Patient given discharge instructions. Patient instructed continue or start a vitamin. Labs unremarkable. - Differential Diagnosis miscarriage. Vaginal spotting. Abdominal pain. Cramping Critical care attestation.: If time is entered above; I have spent that time in minutes in the direct care of this critically ill patient, excluding procedure time. ED Disposition Clinical Impression: Abdominal cramping, Vaginal spotting Abdominal pain Qualifiers: Abdominal location: lower abdomen, unspecified Qualified Code(s): R10.30 - Lower abdominal pain, unspecified Qualifiers: Weeks of gestation: 9 weeks Qualified Code(s): Z3A.09 - 9 weeks gestation of Subchorionic hematoma in first trimester Qualifiers: Fetus number: single or unspecified fetus Qualified Code(s): O41.8X10 - Other specified disorders of amniotic fluid and membranes, first trimester, not applicable or unspecified Nausea & vomiting Qualifiers: Vomiting type: unspecified Vomiting Intractability: non-intractable Qualified Code(s): R11.2 - Nausea with vomiting, unspecified Disposition: TO HOME OR SELFCARE Is pt being admited?: No Does the pt Need Aspirin: No Condition: Stable Instructions: Spontaneous Miscarriage (ED), (ED), Abdominal Pain in (ED) Additional Instructions: Patient to follow-up with primary care in 2-3 days. He is to follow up with CONCIER[facility] RECEPTIONIST within 2-3 days. Patient to take Tylenol when necessary for pain. Patient to return to ER if condition worsens. Continue vitamin. Patient to increase water. Patient to rest. No strenuous activities until cl eared by [facility]. Prescriptions: Ondansetron [Zofran Odt] 4 mg PO Q6HR PRN #20 tab.rapdis PRN Reason: Nausea And Vomiting Referrals: GIANLUCA ROE MD [Primary Care Provider] - 2-3 Days CELIA MUNSON MD [Staff Physician] - 2-3 Days Forms: Work/School Release Form(ED) Time of Disposition: :01
--- NOTE | 2019-02-04 08:12 | Ultrasound Report ---
PROCEDURE: US OB <= 14 WEEKS FETUS TECHNIQUE: Transabdominal grayscale, color Doppler and M-mode first trimester ultrasound HISTORY: 10 weeks /bleeding and cramping COMPARISONS: 01/23/2019 FINDINGS: A single living intrauterine is present with recorded cardiac activity 176 bpm and crown-ru mp length of approximately 2.3 cm corresponding to estimated gestational age of 9 weeks 0 days and de livery date of 09/09/2019. A normal-appearing yolk sac measures approximately 5 mm in diameter. A small perigestational hemorrha ge may be present involving less than 25% of the gestational sac surface area. No free fluid in the p geovany. The ovaries are sonographically unremarkable and measures 3.5 x 1.8 x 2.3 cm on the right and 3.6 x 2.2 x 2.5 cm on the left. IMPRESSION: Single living intrauterine with estimated gestational age of 9 weeks 0 days corresponding t o delivery date of 09/09/2019. A small perigestational hemorrhage is suggested involving less than 25% of the gestational sac surface area. This document is electronically signed by Radu Villanueva MD., Feb 04 2019 08:10:10 AM ET
[2019-02-04 09:21] LABS: Bilirubin,Urine NEG (Negative); Blood,Urine NEG (Negative); Color,Urine Yellow (Yellow); Protein,Urine <15 mg/dL mg/dL (Negative); RBC,Urine < 1.0 /HPF (0.0-6.0); Urobilinogen,Urine < 2.0 mg/dL (<2.0)
[2019-02-04 11:40] VITALS: BP 146/80
== END 2019-02-04 11:05 | disposition home or self-care (01) ==
LOC: ED 04:06
DX: O26.891 Other specified pregnancy related conditions, first trimester (principal); R10.30 Lower abdominal pain, unspecified; O26.851 Spotting complicating pregnancy, first trimester; O41.8X10 Other specified disorders of amniotic fluid and membranes, first trimester, not applicable or unspecified; O21.8 Other vomiting complicating pregnancy; O16.1 Unspecified maternal hypertension, first trimester; Z87.891 Personal history of nicotine dependence; Z88.1 Allergy status to other antibiotic agents; Z88.3 Allergy status to other anti-infective agents; Z3A.09 9 weeks gestation of pregnancy
CPT/HCPCS: 36415; 76801; 81001; 84702; 84703; 85025; 86900; 86901

== ENCOUNTER 2019-02-25 17:11 | Emergency (ER) | payer BC ==
[2019-02-25 17:18] VITALS: BP 137/82
--- NOTE | 2019-02-25 17:18 | Event Note ---
ED Screening Note ED Screening Note: [id number] 1 12/15 VAG BLEED WHEN SHE WIPES RX LABETOLOL BID PMH HTN PSH ECTOPIC This initial assessment/diagnostic orders/clinical plan/treatment(s) is/are subject to change based on patients health status, clinical progression and re- assessment by fellow clinical providers in the ED. Further treatment and workup at subsequent clinical providers discretion. Patient/guardian urged not to elope from the ED as their condition may be serious if not clinically assessed and managed. Initial orders include:
[2019-02-25 18:00] LABS: Hematocrit 30.9 % (30.3-42.9); Hemoglobin 10.7 gm/dl (10.1-14.3); Mean Corpuscular HGB Conc 35 % (30-34); Mean Corpuscular Volume 89 fl (79-97); Platelet Count 236 K/mm3 (140-440); Red Blood Count 3.47 M/mm3 (3.65-5.03); Red Cell Distribution Width 13.9 % (13.2-15.2)
[2019-02-25 18:21] LABS: BUN/Creatinine Ratio 13; Blood Urea Nitrogen 8 mg/dL (7-17); Calcium 9.1 mg/dL (8.4-10.2); Hemolysis Index 0
[2019-02-25 19:23] LABS: Bilirubin,Urine NEG (Negative); Blood,Urine LG (Negative); Color,Urine Yellow (Yellow); Mucus,Urine FEW /HPF; Protein,Urine <15 mg/dL mg/dL (Negative); Urobilinogen,Urine < 2.0 mg/dL (<2.0)
--- NOTE | 2019-02-25 20:33 | Ultrasound Report ---
PROCEDURE: US OB <= 14 WEEKS FETUS TECHNIQUE: Real-time transabdominal sonography of the uterus, placenta, amniotic fluid, adnexa, and fetus was performed with image documentation. Measurements were obtained to determine age/size. M-mode Doppler was used to document heartbeat. ADDITIONAL GESTATION: None. HISTORY: BLEEDING PREG COMPARISONS: None . FINDINGS: CRL: 48.7 mm, which corresponds to a gestational age of: 11 weeks, 4 days. Yolk Sac: Appropriate for gestational age. . Embryonic Cardiac Activity: 166 bpm, regular . Gestational Sac: Size and shape are appropriate for gestational age Amniotic fluid: Appropriate for gestational age. Right Ovary: Normal . Measures 3.2 x 2.4 x 2.5 cm Left Ovary: Normal . Measures 2.2 x 1.7 x 2.2 cm Estimated delivery date: 09/12/2019 . Uterus and adnexa: Normal. IMPRESSION: Single live intrauterine gestation at approximately 11 weeks and 4 days . EDC by US 09/12 . This document is electronically signed by Berto Marroquin MD., February 25 2019 08:31:18 PM ET
--- NOTE | 2019-02-25 21:18 | Emergency Department Report ---
ED HPI - General Chief complaint: Vaginal Bleeding Stated complaint: DIZZY Time Seen by Provider: 02/25/19 17:16 Source: patient Mode of arrival: Ambulatory Limitations: No Limitations - History of Present Illness Initial comments: 33-year-old -[place] female comes in complaining of vaginal bleeding and dizziness. Patient reports dizziness started this morning bleeding just started. Patient reports that the abdominal pains or crampy in nature. Patient is 6 para 4 with one ectopic . Patient denies feeling up pads only blood on toilet paper. She reports a rest makes it better movement makes it worse. Patient had complications of for hypertension she had to have her last -induced. She is delivered all pregnancies vaginally. She reports her pain has improved from 7 out of 10 to now 4 out of 10. Patient reports she is currently taking labetalol for hypertension and vitamins. MD Complaint: vaginal bleeding Onset/Timin -: days(s) Location: pelvis Radiation: suprapubic Severity scale (0 -10): 4 Quality: cramping Consistency: intermittent Improves with: rest Worsens with: movement Associated symptoms: vaginal bleeding, abdominal pain. denies: vaginal discharge - Related Data Previous Rx's Medication Instructions Recorded Last Taken Type Labetalol [Labetalol 100mg TAB] 100 mg PO BID #60 tablet 01/25/18 Unknown Rx Fluconazole [Diflucan TAB] 150 mg PO ONCE #1 tablet 12/06/18 Unknown Rx Nitrofurantoin Monohyd/M-Cryst 100 mg PO BID #14 capsule 12/06/18 Unknown Rx [Macrobid 100 mg Capsule] metroNIDAZOLE [Flagyl] 500 mg PO BID 10 Days #20 tab 12/06/18 Unknown Rx Promethazine [Phenergan] 25 mg PO Q6HR PRN #10 tab 01/23/19 Unknown Rx Ondansetron [Zofran Odt] 4 mg PO Q6HR PRN #20 tab.rapdis 02/04/19 Unknown Rx Allergies Allergy/AdvReac Type Severity Reaction Status Date / Time cephalexin [From Keflex] Allergy Swelling Verified 02/25/19 17:12 griseofulvin Allergy Swelling Verified 02/25/19 17:12 ED Review of Systems ROS: Stated complaint: DIZZY Other details as noted in HPI ED Past Medical Hx - Past Medical History Hx Hypertension: Yes Additional medical history: Vaginal delivery x 4 ECTOPIC - Surgical History Additional Surgical History: Removal of one tube - Social History Smoking Status: Never Smoker Substance Use Type: None - Medications Home Medications: Home Medications Medication Instructions Recorded Confirmed Last Taken Type Labetalol [Labetalol 100mg TAB] 100 mg PO BID #60 tablet 01/25/18 Unknown Rx Fluconazole [Diflucan TAB] 150 mg PO ONCE #1 tablet 12/06/18 Unknown Rx Nitrofurantoin Monohyd/M-Cryst 100 mg PO BID #14 capsule 12/06/18 Unknown Rx [Macrobid 100 mg Capsule] metroNIDAZOLE [Flagyl] 500 mg PO BID 10 Days #20 tab 12/06/18 Unknown Rx Promethazine [Phenergan] 25 mg PO Q6HR PRN #10 tab 01/23/19 Unknown Rx Ondansetron [Zofran Odt] 4 mg PO Q6HR PRN #20 tab.rapdis 02/04/19 Unknown Rx ED Physical Exam - General Limitations: No Limitations General appearance: alert, in no apparent distress - Head Head exam: Present: atraumatic, normocephalic - Eye Eye exam: Present: normal appearance - ENT ENT exam: Present: mucous membranes moist - Neck Neck exam: Present: normal inspection - Respiratory Respiratory exam: Present: normal lung sounds bilaterally. Absent: respiratory distress - Cardiovascular Cardiovascular Exam: Present: regular rate, normal rhythm. Absent: systolic murmur, diastolic murmur, rubs, gallop - GI/Abdominal GI/Abdominal exam: Present: soft, normal bowel sounds - Extremities Exam Extremities exam: Present: normal inspection - Back Exam Back exam: Present: normal inspection - Neurological Exam Neurological exam: Present: alert, oriented X3 - Psychiatric Psychiatric exam: Present: normal affect, normal mood - Skin Skin exam: Present: warm, dry, intact, normal color. Absent: rash ED Course Vital Signs 02/25/19 17:15 Temperature 98.0 F Pulse Rate 74 Respiratory 18 Rate Blood Pressure 137/82 O2 Sat by Pulse 100 Oximetry ED Medical Decision Making - Lab Data Result diagrams: 02/25/19 17:39 02/25/19 17:39 Laboratory Results - last 72 hr 02/25/19 02/25/19 02/25/19 17:39 17:39 17:39 WBC 5.9 RBC 3.47 L Hgb 10.7 Hct 30.9 MCV 89 MCH 31 MCHC 35 H RDW 13.9 Plt Count 236 Sodium 135 L Potassium 4.0 Chloride 101.1 Carbon Dioxide 22 Anion Gap 16 BUN 8 Creatinine 0.6 L Estimated GFR > 60 BUN/Creatinine Ratio 13 Glucose 81 Calcium 9.1 HCG, Quant Urine Color Urine Turbidity Urine pH Ur Specific [place] Urine Protein Urine Glucose (UA) Urine Ketones Urine Blood Urine Nitrite Urine Bilirubin Urine Urobilinogen Ur Leukocyte Esterase Urine WBC (Auto) Urine RBC (Auto) U Epithel Cells (Auto) Urine Mucus Blood Type O POSITIVE 02/25/19 02/25/19 17:39 18:48 WBC RBC Hgb Hct MCV MCH MCHC RDW Plt Count Sodium Potassium Chloride Carbon Dioxide Anion Gap BUN Creatinine Estimated GFR BUN/Creatinine Ratio Glucose Calcium HCG, Quant 22124 H Urine Color Yellow Urine Turbidity Slightly-cloudy Urine pH 6.0 Ur Specific [place] 1.023 Urine Protein <15 mg/dl Urine Glucose (UA) Neg Urine Ketones Neg Urine Blood Lg Urine Nitrite Neg Urine Bilirubin Neg Urine Urobilinogen < 2.0 Ur Leukocyte Esterase Neg Urine WBC (Auto) 2.0 Urine RBC (Auto) 36.0 U Epithel Cells (Auto) 9.0 Urine Mucus Few Blood Type - Radiology Data Radiology results: report reviewed Patient: MICAH FLOYD MR#: [id number] : 1985 Acct:[id number] Age/Sex: 33 / F ADM Date: 02/25/19 Loc: ED Attending Dr: Ordering Physician: MOLLY RIOS Date of Service: 02/25/19 Procedure(s): US OB <= 14 weeks fetus Accession Number(s): [id number] cc: MOLLY RIOS PROCEDURE: US OB <= 14 WEEKS FETUS TECHNIQUE: Real-time transabdominal sonography of the uterus, placenta, amniotic fluid, adnexa, and fetus was performed with image documentation. Measurements were obtained to determine age/size. M-mode Doppler was used to document heartbeat. ADDITIONAL GESTATION: None. HISTORY: BLEEDING PREG COMPARISONS: None . FINDINGS: CRL: 48.7 mm, which corresponds to a gestational age of: 11 weeks, 4 days. Yolk Sac: Appropriate for gestational age. . Embryonic Cardiac Activity: 166 bpm, regular . Gestational Sac: Size and shape are appropriate for gestational age Amniotic fluid: Appropriate for gestational age. Right Ovary: Normal . Measures 3.2 x 2.4 x 2.5 cm Left Ovary: Normal . Measures 2.2 x 1.7 x 2.2 cm Estimated delivery date: 09/12/2019 . Uterus and adnexa: Normal. IMPRESSION: Single live intrauterine gestation at approximately 11 weeks and 4 days . EDC by US 09/12/2019 . This document is electronically signed by Mario Marroquin MD., February 25 2019 08:31:18 PM ET Transcribed By: [facility] [place] Dictated By: MARIO MARROQUIN Electronically Authenticated By: MARIO MARROQUIN Signed Date/Time: 02/25/192032 DD/ 24 TD/TT: 02/25/192024 Critical care attestation.: If time is entered above; I have spent that time in minutes in the direct care of this critically ill patient, excluding procedure time. ED Disposition Clinical Impression: Vaginal bleeding during Disposition: DC-01 TO HOME OR SELFCARE Is pt being admited?: No Does the pt Need Aspirin: No Condition: Stable Instructions: Threatened Miscarriage (ED) Additional Instructions: Continue taking vitamins as prescribed. Tylenol for pain. Rest and follow-up with your OB doctor in the next 2-3 days. Referrals: [facility] SOLIMAN MD [Primary Care Provider] - 3-5 Days [facility] [Provider Group] - 3-5 Days Forms: Work/School Release Form(ED)
== END 2019-02-25 21:49 | disposition home or self-care (01) ==
LOC: ED 17:11
DX: O20.9 Hemorrhage in early pregnancy, unspecified (principal); O26.891 Other specified pregnancy related conditions, first trimester; R42 Dizziness and giddiness; O10.911 Unspecified pre-existing hypertension complicating pregnancy, first trimester; Z3A.13 13 weeks gestation of pregnancy
CPT/HCPCS: 36415; 76801; 80048; 81001; 84702; 85027; 86900; 86901; 93005; 93010

== ENCOUNTER 2019-03-15 15:09 | Emergency (ER) | payer BC ==
--- NOTE | 2019-03-15 16:21 | Emergency Department Report ---
Blank Doc - Documentation Documentation: 33 y old female presents s/p fall about 2 hours ago states slid and fall on butt pnc at [facility] at 14 wekks cc of feeling dizzy since after the incident
[2019-03-15 17:03] LABS: Basophils # (Auto) 0.1 K/mm3 (0.0-0.1); Basophils % (Auto) 0.7 % (0.0-1.8); Eosinophils # (Auto) 0.1 K/mm3 (0.0-0.4); Hematocrit 30.3 % (30.3-42.9); Hemoglobin 10.7 gm/dl (10.1-14.3); Lymphocytes # (Auto) 1.6 K/mm3 (1.2-5.4); Lymphocytes % (Auto) 20.1 % (13.4-35.0); Mean Corpuscular HGB Conc 35 % (30-34); Mean Corpuscular Volume 89 fl (79-97); Monocytes # (Auto) 0.6 K/mm3 (0.0-0.8); Monocytes % (Auto) 7.6 % (0.0-7.3); Platelet Count 233 K/mm3 (140-440); Red Blood Count 3.39 M/mm3 (3.65-5.03); Red Cell Distribution Width 14.3 % (13.2-15.2)
[2019-03-15 17:34] LABS: BUN/Creatinine Ratio 15; Blood Urea Nitrogen 9 mg/dL (7-17); Calcium 9.4 mg/dL (8.4-10.2); Hemolysis Index 11
[2019-03-15] MEDS ORDERED: TYLENOL PO ONE (18:07)
--- NOTE | 2019-03-15 18:11 | Emergency Department Report ---
ED Fall HPI - General Chief Complaint: Fall Stated Complaint: FELL (14WKS PREG) Time Seen by Provider: 03/15/19 16:17 Source: patient Mode of arrival: Ambulatory - History of Present Illness Initial Comments: 33-year-old -[place] female that is proximal and 14 weeks and due on September 2019 comes in for the fall ground-level complains of back pain headache patient states she was running to the restroom vomiting and slid. Patient reports she hit her head on the floor but denies any loss of consciousness. Patient denies any further nausea or vomiting. Patient denies any change in vision. Patient reported at times is a little dizzy but that has all resolved. Patient is currently being followed in care. 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 Fall Witnessed: no Place Fall Occurred: home Loss of Consciousness: none Prolonged Down Time?: no Symptoms Prior to Fall: none Location: head Severity scale (0 -10): 4 Context: tripped/slipped - Related Data Previous Rx's Medication Instructions Recorded Last Taken Type Labetalol [Labetalol 100mg TAB] 100 mg PO BID #60 tablet 01/25/18 Unknown Rx Fluconazole [Diflucan TAB] 150 mg PO ONCE #1 tablet 12/06/18 Unknown Rx Nitrofurantoin Monohyd/M-Cryst 100 mg PO BID #14 capsule 12/06/18 Unknown Rx [Macrobid 100 mg Capsule] metroNIDAZOLE [Flagyl] 500 mg PO BID 10 Days #20 tab 12/06/18 Unknown Rx Promethazine [Phenergan] 25 mg PO Q6HR PRN #10 tab 01/23/19 Unknown Rx Ondansetron [Zofran Odt] 4 mg PO Q6HR PRN #20 tab.rapdis 02/04/19 Unknown Rx Allergies Allergy/AdvReac Type Severity Reaction Status Date / Time cephalexin [From Keflex] Allergy Swelling Verified 02/25/19 17:12 griseofulvin Allergy Swelling Verified 02/25/19 17:12 ED Review of Systems ROS: Stated complaint: FELL (14WKS PREG) Other details as noted in HPI Comment: All other systems reviewed and negative Gastrointestinal: denies: abdominal pain, nausea, vomiting Neurological: headache ED Past Medical Hx - Past Medical History Previous Medical History?: Yes Hx Hypertension: Yes Additional medical history: Vaginal delivery x 4 ECTOPIC - Surgical History Additional Surgical History: Removal of one tube; ectopic - Social History Smoking Status: Never Smoker Substance Use Type: None - Medications Home Medications: Home Medications Medication Instructions Recorded Confirmed Last Taken Type Labetalol [Labetalol 100mg TAB] 100 mg PO BID #60 tablet 01/25/18 Unknown Rx Fluconazole [Diflucan TAB] 150 mg PO ONCE #1 tablet 12/06/18 Unknown Rx Nitrofurantoin Monohyd/M-Cryst 100 mg PO BID #14 capsule 12/06/18 Unknown Rx [Macrobid 100 mg Capsule] metroNIDAZOLE [Flagyl] 500 mg PO BID 10 Days #20 tab 12/06/18 Unknown Rx Promethazine [Phenergan] 25 mg PO Q6HR PRN #10 tab 01/23/19 Unknown Rx Ondansetron [Zofran Odt] 4 mg PO Q6HR PRN #20 tab.rapdis 02/04/19 Unknown Rx ED Physical Exam - General Limitations: No Limitations General appearance: alert, in no apparent distress - Head Head exam: Present: atraumatic, normocephalic - Eye Eye exam: Present: normal appearance - ENT ENT exam: Present: mucous membranes moist - Neck Neck exam: Present: normal inspection - Neurological Exam Neurological exam: Present: alert, oriented X3, normal gait - Psychiatric Psychiatric exam: Present: normal affect, normal mood - Skin Skin exam: Present: warm, dry, intact, normal color. Absent: rash ED Course Vital Signs 03/15/19 16:16 Temperature 97.9 F Pulse Rate 102 H Respiratory 20 Rate Blood Pressure 131/80 O2 Sat by Pulse 100 Oximetry ED Medical Decision Making - Lab Data Result diagrams: 03/15/19 16:39 03/15/19 16:39 Critical care attestation.: If time is entered above; I have spent that time in minutes in the direct care of this critically ill patient, excluding procedure time. ED Disposition Clinical Impression: Fall Qualifiers: Encounter type: initial encounter Qualified Code(s): W19.XXXA - Unspecified fall, initial encounter Disposition: DC-01 TO HOME OR SELFCARE Is pt being admited?: No Does the pt Need Aspirin: No Condition: Stable Instructions: Fall Prevention (ED) Additional Instructions: Take Tylenol as needed for pain. Referrals: [facility] LUIS [Primary Care Provider] - 3-5 Days
[2019-03-15 18:52] VITALS: BP 127/80
== END 2019-03-15 18:52 | disposition home or self-care (01) ==
LOC: ED 15:09
DX: O9A.212 Injury, poisoning and certain other consequences of external causes complicating pregnancy, second trimester (principal); M54.9 Dorsalgia, unspecified; R51 Headache; I10 Essential (primary) hypertension; Z3A.14 14 weeks gestation of pregnancy; Z79.899 Other long term (current) drug therapy; Z88.1 Allergy status to other antibiotic agents; Z88.8 Allergy status to other drugs, medicaments and biological substances; W01.198A Fall on same level from slipping, tripping and stumbling with subsequent striking against other object, initial encounter; Y93.89 Activity, other specified; Y92.099 Unspecified place in other non-institutional residence as the place of occurrence of the external cause; Y99.8 Other external cause status
CPT/HCPCS: 36415; 80048; 84703; 85025; 99283

== ENCOUNTER 2019-04-22 21:44 | Emergency (ER) | payer BC ==
[2019-04-22 22:03] VITALS: BP 149/88
== END 2019-04-22 22:00 | disposition left against medical advice (07) ==
LOC: ED 21:44
DX: O20.8 Other hemorrhage in early pregnancy (principal); Z53.21 Procedure and treatment not carried out due to patient leaving prior to being seen by health care provider

== ENCOUNTER 2019-05-10 18:11 | Outpatient (CLI) | payer BC, OTHER ==
[2019-05-10] MEDS ORDERED: LACTATED RINGERS 500 ML IV ONE (18:53)
[2019-05-10 19:42] VITALS: BP 113/64
[2019-05-10 20:54] LABS: Bilirubin,Urine NEG (Negative); Blood,Urine NEG (Negative); Color,Urine Yellow (Yellow); Mucus,Urine FEW /HPF; Protein,Urine <15 mg/dL mg/dL (Negative); Urobilinogen,Urine < 2.0 mg/dL (<2.0)
--- NOTE | 2019-05-10 20:59 | Event Note ---
Date: 05/10/19 "I just don't feel weel" she denies f/c/n/v, bleeding, leaking, contractions and pain. She thinks it's d/t the 17OHP. States +FM. Declined vaginal exam. States she's had nose bleeds and was told to get her platelets checked. FHT's 120's Will check CBC and BMP PO fluid hydration. Usually works night's will give work excuse for tonight and tomorrow night, if she is discharged tonight She voiced understanding and agrees with plan of care
[2019-05-10 22:28] LABS: Hematocrit 29.5 % (30.3-42.9); Hemoglobin 9.9 gm/dl (10.1-14.3); Mean Corpuscular HGB Conc 34 % (30-34); Mean Corpuscular Volume 91 fl (79-97); Platelet Count 242 K/mm3 (140-440); Red Blood Count 3.22 M/mm3 (3.65-5.03); Red Cell Distribution Width 14.7 % (13.2-15.2)
[2019-05-10 22:49] LABS: BUN/Creatinine Ratio 12; Blood Urea Nitrogen 6 mg/dL (7-17); Calcium 9.7 mg/dL (8.4-10.2); Hemolysis Index 13
== END 2019-05-10 23:41 | disposition home or self-care (01) ==
LOC: TRG 18:11
PROVIDERS: ATTEND Obstetrics & Gynecology
DX: O21.8 Other vomiting complicating pregnancy (principal); O26.812 Pregnancy related exhaustion and fatigue, second trimester; R42 Dizziness and giddiness; Z3A.22 22 weeks gestation of pregnancy
CPT/HCPCS: 36415; 59025; 80048; 81001; 85027

== ENCOUNTER 2019-07-13 20:40 | Outpatient (CLI) | payer BC, OTHER ==
[2019-07-13 22:14] VITALS: BP 132/83
[2019-07-13 22:39] LABS: Bilirubin,Urine NEG (Negative); Blood,Urine NEG (Negative); Color,Urine Yellow (Yellow); Mucus,Urine FEW /HPF; Protein,Urine <15 mg/dL mg/dL (Negative); Urobilinogen,Urine < 2.0 mg/dL (<2.0)
== END 2019-07-13 22:22 | disposition home or self-care (01) ==
LOC: TRG 20:40
PROVIDERS: ATTEND Obstetrics & Gynecology
DX: O26.893 Other specified pregnancy related conditions, third trimester (principal); R42 Dizziness and giddiness; R04.0 Epistaxis; Z3A.31 31 weeks gestation of pregnancy
CPT/HCPCS: 59025; 81001

== ENCOUNTER 2019-07-19 12:01 | Inpatient (IN) | payer BC, OTHER ==
[2019-07-19] MEDS ORDERED: ONDANSETRON 4 MG/2 ML INJ IV PRN (12:19)
[2019-07-19] MEDS ORDERED: SODIUM CHLORIDE NASAL SPRAY 44ML NS PRN (12:19)
[2019-07-19] MEDS ORDERED: DOCUSATE SODIUM 100 MG CAP PO PRN (12:19)
[2019-07-19] MEDS ORDERED: ACETAMINOPHEN 325 MG TAB PO PRN ×2 (12:19→14:49)
--- NOTE | 2019-07-19 12:30 | History and Physical Report ---
History of Present Illness Date of examination: 07/19/19 Chief complaint: Admitted from [facility]'s office, new dx IUGR 2nd% and oligohydramnios w/o complaint of leaking History of present illness: EDC Calculations LMP: 09/12/2019 Past History : 7 Term Births: 4 Premature Births: 0 Living Children: 4 Para: 4 Aborta: 2 Elect. Ab: 0 Spont. Ab: 1 Ectopics: 1 # 1 Delivery date: 02/06/2002 Weeks Gestation: 38 Delivery type: Infant Sex: Female weight: 4#15 # 2 Delivery date: 06/09/2004 Weeks Gestation: 36 Delivery type: Infant Sex: Male weight: 4#13 Comments: NICU 2-3wks for "lung development" # 3 Delivery date: 09/27/2008 Weeks Gestation: term Delivery type: Sex: Female weight: 7# Comments: IOL # 4 Delivery date: 08/01/2014 Weeks Gestation: term Delivery type: Infant Sex: Male weight: 5#14 Comments: IOL- HTN # 5 Delivery date: 02/05/2018 Delivery type: ectopic Past Medical History: Reviewed history from 02/11/2018 and no changes required: Hypertension Past Surgical History: Reviewed history from 02/11/2018 and no changes required: D&C: Abdominal Surgery: (02/11/2018) LSC left salpingectomy Past Medical History Anesthesia Complications: negative Anemia: negative Autoimmune Disorder: negative Bleeding Disorder: negative Blood Transfusions: negative Breast Disease: negative Diabetes: negative Heart Disease: negative Hypertension: positive Hepatitis/Liver Disease: negative Kidney Disease/UTI: negative Neurologic/Epilepsy/Migraines: negative Phlebitis/Varicosities: negative Psychiatric: negative Pulmonary Disease/Asthma: negative Thyroid Disease: negative Hospitalizations: negative Social Hx: Marital Status: single Children: 4 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 Infection History Hx of STD: gc/ch Personal hx. of genital herpes: no Varicella/Chicken Pox Status: Previous Disease Genetic History Congenital Heart Defect: Mom: no Dad: no Ozzie Disease: Mom: no Dad: no Thalassemia Mom: no Dad: no Neural Tube Defect Mom: no Dad: no Down's Syndrome Mom: no Dad: no Awais-Sachs Mom: no Dad: no Sickle Cell Disease/Trait Mom: no Dad: no Hemophilia Mom: no Dad: no Muscular Dystrophy Mom: no Dad: no Cystic Fibrosis Mom: no Dad: no [place] Chorea Mom: no Dad: no Mental Retardation Mom: no Dad: no Fragile X Mom: no Dad: no Other Genetic/Chromosomal Disorder Mom: no Dad: no Child w/other defect Mom: no Dad: no Enviromental Exposures Xray Exposure: no Medication, drug, or alcohol use since LMP: no Chemical/Other Exposure: no Exposure to Cat Liter: no Hx of Parvovirus (Fifth Disease): no Occupational Exposure to Children: none Active Medications (reviewed today): LOTRISONE CRE () apply bid x 2 wks ORTHO MICRONOR 0.35 MG ORAL TABLET (NORETHINDRONE) 1 po q day as directed ONE-A-DAY WOMENS 50+ ADVANTAGE ORAL TABLET (MULTIPLE VITAMINS-MINERALS) IBUPROFEN PM TABLET (IBUPROFEN-DIPHENHYDRAMINE CIT TABS) Current Allergies (reviewed today): * KEFLEX (Critical) * GRISEOFULVIN (Critical) Past History Past Medical History: other (see HPI) Past Surgical History: other (see HPI) 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 (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) Family/Genetic History: other (see HPI) - Obstetrical History Expected Date of Delivery: 09/12/19 Actual Gestation: 32 Week(s) 1 Day(s) : 7 Para: 4 Hx # Term Pregnancies: 3 Number of Pregnancies: 1 Spontaneous Abortions: 2 Induced : 0 Number of Living Children: 4 Medications and Allergies Allergies Allergy/AdvReac Type Severity Reaction Status Date / Time cephalexin [From Keflex] Allergy Swelling Verified 02/25/19 17:12 griseofulvin Allergy Swelling Verified 02/25/19 17:12 Home Medications Medication Instructions Recorded Confirmed Last Taken Type Aspirin [Aspirin BABY CHEW TAB] 81 mg PO QDAY 07/13/19 07/19/19 07/18/19 History Iron 1 tab PO DAILY 07/13/19 07/19/19 07/18/19 History 1 Labetalol [Labetalol 200mg TAB] 200 mg PO BID 07/13/19 07/19/19 07/19/19 History 1 Vit-Fe Fumar-FA [ 1 tab PO DAILY 07/13/19 07/19/19 07/19/19 History Vitamin] 1 Active Meds: Active Medications Acetaminophen (Tylenol) 650 mg PO Q4H PRN PRN Reason: Pain MILD(1-3)/Fever >100.5/VALDES Betamethasone Acet/Betameth SodPhos ([place]el[place] Soluspan) 12 mg IM Q24HR SATHYA Stop: 07/20/19 10:01 Docusate Sodium (Colace) 100 mg PO Q12H PRN PRN Reason: Constipation Multivitamins/Iron/Calcium ( Vitamin) 1 each PO QDAY SATHYA Ondansetron HCl (Zofran) 4 mg IV Q6H PRN PRN Reason: Nausea And Vomiting Sodium Chloride ([place]) 2 spray NS Q4H PRN PRN Reason: Congestion Review of Systems All systems: negative - Vital Signs Vital signs: Vital Signs Pulse BP 91 H 128/78 07/13/19 22:23 07/13/19 22:23 Temp Pulse Resp BP Pulse Ox 100 H 129/69 07/19/19 12:23 07/19/19 12:23 - Physical Exam Breasts: Positive: normal Cardiovascular: Regular rate Lungs: Positive: Clear to auscultation, Normal air movement Abdomen: Positive: normal appearance, soft Genitourinary (Female): Positive: normal external genitalia, normal perenium Vulva: both: normal Vagina: Positive: normal moisture (spec exam done - no pooling or evidence of leaking. normal white vaginal discharge noted) Uterus: Positive: normal size, normal contour Extremities: Positive: normal Deep Tendon Reflex Grade: Normal +2 - Obstetrical FHR: category 2 Uterine Contraction Monitor Mode: External Cervical Dilatation: 0 Uterine Contraction Pattern: Absent Uterine Tone Measurement Phase: Resting Results Result Diagrams: 07/19/19 12:30 All other labs normal. Assessment and Plan 33y/o admitted for monitoring and steroids d/t IUGR and oligohydramnios Pt followed by [facility] d/t hx htn, obesity and hx delivery. routine testing today showed IUGR 2nd% and LORENA 4.6cms. Sterile spec exam done: cervix appears closed. no leaking or bleeding noted. Small amount of normal white non-odorus vaginal discharge present. Plan of care reviewed with patient. [facility] consult ordered. All questions addressed. - Patient Problems (1) Oligohydramnios antepartum Current Visit: Yes Status: Acute Qualifiers: Fetus number: single or unspecified fetus Qualified Code(s): O41.00X0 - Oligohydramnios, unspecified trimester, not applicable or unspecified Plan to address problem: Spec exam done at admission- no evidence of PPROM IVF hydration monitor s/s PPROM steroids for lung maturity recheck LORENA in a few days per AMFM's recommendations. (2) HTN (hypertension) Current Visit: Yes Status: Acute Qualifiers: Hypertension type: essential hypertension Qualified Code(s): I10 - Essentia l (primary) hypertension Plan to address problem: Monitor b/p continue PO Labetalol 200mg BID (3) 32 weeks gestation of Current Visit: Yes Status: Acute (4) IUGR (intrauterine growth restriction) Current Visit: Yes Status: Acute Plan to address problem: 2nd % by AMFM Cont efm/toco steroids for lung maturity
[2019-07-19 12:55] LABS: Basophils % (Auto) 0.7 % (0.0-1.8); Eosinophils # (Auto) 0.1 K/mm3 (0.0-0.4); Eosinophils % (Auto) 1.4 % (0.0-4.3); Hemoglobin 10.2 gm/dl (10.1-14.3); Lymphocytes # (Auto) 1.2 K/mm3 (1.2-5.4); Lymphocytes % (Auto) 17.8 % (13.4-35.0); Mean Corpuscular HGB Conc 33 % (30-34); Mean Corpuscular Volume 91 fl (79-97); Monocytes # (Auto) 0.5 K/mm3 (0.0-0.8); Monocytes % (Auto) 7.3 % (0.0-7.3); Platelet Count 258 K/mm3 (140-440); Red Blood Count 3.41 M/mm3 (3.65-5.03); Red Cell Distribution Width 14.8 % (13.2-15.2)
[2019-07-19] MEDS: BETAMET ACET/BETAMET NA PH 6 MG/ML INJ 5 ML MDV IM SCH (14:45)
--- NOTE | 2019-07-20 05:43 | Progress Note ---
Assessment and Plan 33yo with Oligo, IUGR,Htn sent for BMZ, IVFs, and monitoring. [facility] All orders in EMR. - Patient Problems (1) HTN (hypertension) Onset Date: ~07/20/19 Current Visit: Yes Status: Acute Qualifiers: Hypertension type: essential hypertension Qualified Code(s): I10 - Essential (primary) hypertension Plan to address problem: BPs normotensive 130/80-70 Pt continues on her po Labetalol. No c/o VALDES, blurred vision, chest pain (2) IUGR (intrauterine growth restriction) Onset Date: ~07/20/19 Current Visit: Yes Status: Acute Plan to address problem: Reassuring tracing Category 1 No ctx noted (3) Oligohydramnios antepartum Onset Date: ~07/20/19 Current Visit: Yes Status: Acute Qualifiers: Fetus number: single or unspecified fetus Qualified Code(s): O41.00X0 - Oligohydramnios, unspecified trimester, not applicable or unspecified Plan to address problem: IVFs infusing Will get repeat US to evaluate LORENA Subjective - Subjective Date of service: 07/20/19 (pt sleeping soundly; no c/o voiced) Principal diagnosis: IUP@32w2d: IUGR; Htn; Oligo Patient reports: movement normal Objective - Vital Signs Vital Signs: Vital Signs - 12hr 07/19/19 07/19/19 07/19/19 19:14 19:15 19:20 Temperature 98.3 F Pulse Rate 101 H 100 H 100 H Respiratory 16 Rate Blood Pressure 135/81 Blood Pressure 135/81 [Right] O2 Sat by Pulse 96 96 97 Oximetry 07/19/19 07/19/19 07/19/19 19:25 19:30 19:35 Temperature Pulse Rate 93 H 99 H 97 H Respiratory Rate Blood Pressure 131/71 Blood Pressure [Right] O2 Sat by Pulse 97 97 96 Oximetry 07/19/19 07/19/19 07/19/19 19:40 19:45 19:50 Temperature Pulse Rate 89 96 H 94 H Respiratory Rate Blood Pressure Blood Pressure [Right] O2 Sat by Pulse 98 98 98 Oximetry 07/19/19 07/19/19 07/19/19 19:55 20:00 20:05 Temperature Pulse Rate 94 H 92 H 92 H Respiratory Rate Blood Pressure Blood Pressure [Right] O2 Sat by Pulse 98 97 98 Oximetry 07/19/19 07/19/19 07/19/19 20:10 20:15 20:20 Temperature Pulse Rate 94 H 102 H 94 H Respiratory Rate Blood Pressure Blood Pressure [Right] O2 Sat by Pulse 96 97 97 Oximetry 07/19/19 07/19/19 07/19/19 20:24 20:25 20:30 Temperature Pulse Rate 96 H 98 H 94 H Respiratory Rate Blood Pressure 144/76 Blood Pressure [Right] O2 Sat by Pulse 97 98 Oximetry 07/19/19 07/19/19 07/19/19 21:42 21:47 21:52 Temperature Pulse Rate 89 87 88 Respiratory Rate Blood Pressure Blood Pressure [Right] O2 Sat by Pulse 98 100 100 Oximetry 07/19/19 07/19/19 07/19/19 21:54 21:57 22:02 Temperature Pulse Rate 90 93 H 89 Respiratory Rate Blood Pressure 148/81 Blood Pressure [Right] O2 Sat by Pulse 98 98 Oximetry 07/19/19 07/19/19 07/19/19 22:07 22:12 22:13 Temperature Pulse Rate 94 H 95 H 96 H Respiratory Rate Blood Pressure 135/65 Blood Pressure [Right] O2 Sat by Pulse 98 99 Oximetry 07/19/19 07/19/19 07/19/19 22:17 22:18 22:22 Temperature Pulse Rate 97 H 99 H 104 H Respiratory Rate Blood Pressure 139/72 Blood Pressure [Right] O2 Sat by Pulse 98 97 Oximetry 07/19/19 07/19/19 07/19/19 22:25 22:27 22:32 Temperature Pulse Rate 103 H 102 H 102 H Respiratory Rate Blood Pressure 144/74 Blood Pressure [Right] O2 Sat by Pulse 98 99 Oximetry 07/19/19 07/19/19 07/19/19 22:37 22:42 23:05 Temperature Pulse Rate 99 H 108 H 96 H Respiratory Rate Blood Pressure Blood Pressure [Right] O2 Sat by Pulse 99 99 98 Oximetry 07/19/19 07/19/19 07/19/19 23:10 23:11 23:15 Temperature Pulse Rate 100 H 98 H 103 H Respiratory Rate Blood Pressure 137/70 Blood Pressure [Right] O2 Sat by Pulse 98 99 Oximetry 07/19/19 07/19/19 07/19/19 23:20 23:25 23:30 Temperature Pulse Rate 109 H 105 H 101 H Respiratory Rate Blood Pressure 125/65 Blood Pressure [Right] O2 Sat by Pulse 99 99 98 Oximetry 07/19/19 07/19/19 07/19/19 23:35 23:40 23:45 Temperature Pulse Rate 101 H 100 H 104 H Respiratory Rate Blood Pressure Blood Pressure [Right] O2 Sat by Pulse 98 97 97 Oximetry 07/19/19 07/19/19 07/19/19 23:52 23:55 23:57 Temperature Pulse Rate 100 H 99 H Respiratory Rate Blood Pressure 129/65 Blood Pressure [Right] O2 Sat by Pulse 96 97 Oximetry 07/20/19 07/20/19 07/20/19 00:02 00:07 00:12 Temperature Pulse Rate 99 H 103 H 100 H Respiratory Rate Blood Pressure Blood Pressure [Right] O2 Sat by Pulse 98 97 97 Oximetry 07/20/19 07/20/19 07/20/19 00:17 00:22 00:25 Temperature Pulse Rate 100 H 101 H 100 H Respiratory Rate Blood Pressure 138/73 Blood Pressure [Right] O2 Sat by Pulse 97 96 Oximetry 07/20/19 07/20/19 07/20/19 00:27 00:32 00:37 Temperature Pulse Rate 102 H 101 H 97 H Respiratory Rate Blood Pressure Blood Pressure [Right] O2 Sat by Pulse 96 97 97 Oximetry 07/20/19 07/20/19 07/20/19 00:38 00:42 00:46 Temperature Pulse Rate 107 H 103 H 102 H Respiratory Rate Blood Pressure Blood Pressure [Right] O2 Sat by Pulse 94 94 94 Oximetry 07/20/19 07/20/19 07/20/19 00:47 00:52 00:55 Temperature Pulse Rate 100 H 103 H 106 H Respiratory Rate Blood Pressure 135/71 Blood Pressure [Right] O2 Sat by Pulse 97 95 Oximetry 07/20/19 07/20/19 07/20/19 00:57 01:02 01:07 Temperature Pulse Rate 100 H 99 H 104 H Respiratory Rate Blood Pressure Blood Pressure [Right] O2 Sat by Pulse 98 97 97 Oximetry 07/20/19 07/20/19 07/20/19 01:12 01:21 01:25 Temperature Pulse Rate 100 H 109 H 86 Respiratory Rate Blood Pressure 139/80 Blood Pressure [Right] O2 Sat by Pulse 98 97 Oximetry 07/20/19 07/20/19 07/20/19 01:26 01:31 01:36 Temperature Pulse Rate 92 H 95 H 94 H Respiratory Rate Blood Pressure Blood Pressure [Right] O2 Sat by Pulse 98 97 98 Oximetry 07/20/19 07/20/19 07/20/19 01:41 01:46 01:51 Temperature Pulse Rate 98 H 98 H 98 H Respiratory Rate Blood Pressure Blood Pressure [Right] O2 Sat by Pulse 96 96 96 Oximetry 07/20/19 07/20/19 07/20/19 01:55 01:56 02:01 Temperature Pulse Rate 98 H 99 H 94 H Respiratory Rate Blood Pressure 131/75 Blood Pressure [Right] O2 Sat by Pulse 96 97 Oximetry 07/20/19 07/20/19 07/20/19 02:06 02:11 02:16 Temperature Pulse Rate 99 H 100 H 100 H Respiratory Rate Blood Pressure Blood Pressure [Right] O2 Sat by Pulse 96 95 95 Oximetry 07/20/19 07/20/19 07/20/19 02:20 02:21 02:25 Temperature Pulse Rate 101 H 102 H 105 H Respiratory Rate Blood Pressure 136/76 Blood Pressure [Right] O2 Sat by Pulse 94 95 93 Oximetry 07/20/19 07/20/19 07/20/19 02:26 02:31 02:36 Temperature Pulse Rate 100 H 97 H 94 H Respiratory Rate Blood Pressure Blood Pressure [Right] O2 Sat by Pulse 97 96 96 Oximetry 07/20/19 07/20/19 07/20/19 02:41 02:46 02:54 Temperature Pulse Rate 94 H 82 89 Respiratory Rate Blood Pressure Blood Pressure [Right] O2 Sat by Pulse 96 97 0 L Oximetry 07/20/19 07/20/19 07/20/19 02:59 03:04 03:09 Temperature Pulse Rate 91 H 80 93 H Respiratory Rate Blood Pressure 133/71 Blood Pressure [Right] O2 Sat by Pulse 98 99 97 Oximetry 07/20/19 07/20/19 07/20/19 03:14 03:19 03:24 Temperature Pulse Rate 81 81 84 Respiratory Rate Blood Pressure Blood Pressure [Right] O2 Sat by Pulse 98 97 97 Oximetry 07/20/19 07/20/19 07/20/19 03:25 03:29 03:34 Temperature Pulse Rate 86 81 76 Respiratory Rate Blood Pressure 136/74 Blood Pressure [Right] O2 Sat by Pulse 97 100 Oximetry 07/20/19 07/20/19 07/20/19 03:39 03:44 03:49 Temperature Pulse Rate 87 86 80 Respiratory Rate Blood Pressure Blood Pressure [Right] O2 Sat by Pulse 99 99 99 Oximetry 07/20/19 07/20/19 07/20/19 03:54 03:59 04:04 Temperature Pulse Rate 84 85 87 Respiratory Rate Blood Pressure Blood Pressure [Right] O2 Sat by Pulse 99 99 99 Oximetry 07/20/19 07/20/19 07/20/19 04:09 04:14 04:19 Temperature Pulse Rate 89 79 91 H Respiratory Rate Blood Pressure Blood Pressure [Right] O2 Sat by Pulse 99 99 100 Oximetry 07/20/19 07/20/19 07/20/19 04:27 04:28 04:29 Temperature Pulse Rate 96 H 93 H 83 Respiratory Rate Blood Pressure 163/87 151/80 Blood Pressure [Right] O2 Sat by Pulse 97 Oximetry 07/20/19 07/20/19 07/20/19 04:32 04:37 04:42 Temperature Pulse Rate 81 76 82 Respiratory Rate Blood Pressure Blood Pressure [Right] O2 Sat by Pulse 98 99 99 Oximetry 07/20/19 07/20/19 07/20/19 04:47 04:52 04:57 Temperature Pulse Rate 80 81 88 Respiratory Rate Blood Pressure 146/86 Blood Pressure [Right] O2 Sat by Pulse 99 99 99 Oximetry 07/20/19 07/20/19 07/20/19 05:02 05:07 05:12 Temperature Pulse Rate 83 83 85 Respiratory Rate Blood Pressure Blood Pressure [Right] O2 Sat by Pulse 100 99 99 Oximetry 07/20/19 07/20/19 07/20/19 05:17 05:22 05:25 Temperature Pulse Rate 87 88 91 H Respiratory Rate Blood Pressure 139/81 Blood Pressure [Right] O2 Sat by Pulse 99 99 Oximetry 07/20/19 07/20/19 05:27 05:32 Temperature Pulse Rate 96 H 93 H Respiratory Rate Blood Pressure Blood Pressure [Right] O2 Sat by Pulse 99 99 Oximetry - Exam Breasts: deferred Cardiovascular: Regular rate Lungs: Clear to auscultation Abdomen: Present: normal appearance, soft, normal bowel sounds. Absent: distention, tenderness Vulva: both: normal Uterus: Present: normal FHR: auscultation normal, category 1 Uterine Contraction Monitor Mode: External Uterine Contraction Pattern: Absent Uterine Tone Measurement Phase: Resting Extremities: edema Deep Tendon Reflex Grade: Normal +2 - Labs Labs: Abnormal Labs 07/19/19 12:30 RBC 3.41 L Seg Neutrophils % 72.8 H Laboratory Results - last 24 hr 07/19/19 07/19/19 12:30 12:30 WBC 6.9 RBC 3.41 L Hgb 10.2 Hct 31.0 MCV 91 MCH 30 MCHC 33 RDW 14.8 Plt Count 258 Lymph % (Auto) 17.8 [place] % (Auto) 7.3 Eos % (Auto) 1.4 Baso % (Auto) 0.7 Lymph # 1.2 [place] # 0.5 Eos # 0.1 Baso # 0.0 Seg Neutrophils % 72.8 H Seg Neutrophils # 5.0 Blood Type O POSITIVE Antibody Screen Negative
[2019-07-20] MEDS ORDERED: BICITRA ORAL LIQD 30ML ONE (06:21)
[2019-07-20] MEDS ORDERED: METOCLOPRAMIDE 10 MG/2 ML INJ ONE (06:22)
[2019-07-20] MEDS ORDERED: FAMOTIDINE 20 MG/2 ML INJ IV ONE (06:22)
[2019-07-20] MEDS: DOCUSATE SODIUM 100 MG CAP PO SCH (10:31)
[2019-07-20] MEDS: FERROUS SULFATE 325 MG TAB PO SCH (10:33)
[2019-07-20] MEDS: PRENATAL VIT27-FE FUMARATE-FOLIC ACID VIT TAB PO SCH (10:33)
[2019-07-20] MEDS: LACTATED RINGERS 1,000 ML IV SCH ×2 (14:11→22:57)
[2019-07-20] MEDS: BETAMET ACET/BETAMET NA PH 6 MG/ML INJ 5 ML MDV IM SCH (17:14)
[2019-07-20] MEDS ORDERED: ZOLPIDEM 5 MG TAB PO PRN (23:01)
--- NOTE | 2019-07-21 05:39 | Progress Note ---
Assessment and Plan Pt is very anxious this AM Voicing concerns @ heart rate. Tried to reassure pt that all babies HR fluctuates and that the FM shows a good HR for her baby. Pt will have f/u US this AM. Dr. Hinds here to see pt Consult report on chart. Orders viewed and noted. Continue POC. - Patient Problems (1) HTN (hypertension) Onset Date: ~07/20/19 Current Visit: Yes Status: Acute Qualifiers: Hypertension type: essential hypertension Qualified Code(s): I10 - Essential (primary) hypertension Plan to address problem: BP 140-120/80-60 There have been a few outliers of diastolic 90. AMFM consult note states Continue Labetalol 200mg po BID Continue to monitor for signs of PreE (2) IUGR (intrauterine growth restriction) Onset Date: ~07/20/19 Current Visit: Yes Status: Acute Plan to address problem: BMZ completed. BPP this AM (3) Oligohydramnios antepartum Onset Date: ~07/20/19 Current Visit: Yes Status: Acute Qualifiers: Fetus number: single or unspecified fetus Qualified Code(s): O41.00X0 - Oligohydramnios, unspecified trimester, not applicable or unspecified Plan to address problem: Repeat US to be done this AM Subjective - Subjective Date of service: 07/21/19 ("I'm just worried about my baby.") Principal diagnosis: IUP@32w3d: IUGR; Htn; Oligo Patient reports: movement normal Objective - Vital Signs Vital Signs: Vital Signs - 12hr 07/20/19 07/20/19 07/20/19 17:55 18:25 18:55 Temperature Pulse Rate 92 H 88 99 H Respiratory Rate Blood Pressure 140/77 128/70 129/63 Blood Pressure [Right] 07/20/19 07/20/19 07/20/19 19:25 19:55 20:25 Temperature Pulse Rate 97 H 99 H 95 H Respiratory Rate Blood Pressure 124/62 141/80 132/67 Blood Pressure [Right] 07/20/19 07/20/19 07/20/19 20:55 21:26 21:29 Temperature 98.4 F Pulse Rate 98 H 91 H 91 H Respiratory 18 Rate Blood Pressure 143/79 157/93 Blood Pressure 157/93 [Right] 07/20/19 07/20/19 07/21/19 22:55 22:56 00:25 Temperature Pulse Rate 98 H 75 96 H Respiratory Rate Blood Pressure 141/75 141/75 118/56 Blood Pressure [Right] - Exam Breasts: deferred Cardiovascular: Regular rate Lungs: Normal air movement Abdomen: Present: normal appearance, soft. Absent: distention, tenderness Uterus: Present: normal FHR: auscultation normal, category 1 Uterine Contraction Monitor Mode: External Uterine Contraction Pattern: Absent Uterine Tone Measurement Phase: Resting Extremities: normal Deep Tendon Reflex Grade: Normal +2 - Labs Labs: Abnormal Labs 07/19/19 12:30 RBC 3.41 L Seg Neutrophils % 72.8 H
--- NOTE | 2019-07-21 08:06 | Progress Note ---
Assessment and Plan IUP at 32 3/7 weeks gestation IUGR Oligohydramnios CHTN Obesity s/p BMZ Rec: Continue to monitor for distress Repeat BPP/Doppler today Continue Labetalol Continue 17P Pt advised that continued hospitalization is advised if oligohydramnios persists and/or testing is not reassuring Delivery advised at 34 0/7 -37 0/7 Subjective - Subjective Date of service: 07/21/19 Principal diagnosis: IUP@32w3d: IUGR; Htn; Oligo Interval history: She denies LOF, bleeding , cramping Patient reports: movement normal Objective - Vital Signs Vital Signs: Vital Signs - 12hr 07/20/19 07/20/19 07/20/19 20:25 20:55 21:26 Temperature Pulse Rate 95 H 98 H 91 H Respiratory Rate Blood Pressure 132/67 143/79 157/93 Blood Pressure [Right] 07/20/19 07/20/19 07/20/19 21:29 22:55 22:56 Temperature 98.4 F Pulse Rate 91 H 98 H 75 Respiratory 18 Rate Blood Pressure 141/75 141/75 Blood Pressure 157/93 [Right] 07/21/19 07/21/19 07/21/19 00:25 05:38 05:56 Temperature Pulse Rate 96 H 90 86 Respiratory Rate Blood Pressure 118/56 147/78 149/75 Blood Pressure [Right] 07/21/19 07/21/19 07/21/19 06:25 06:56 07:25 Temperature Pulse Rate 85 83 80 Respiratory Rate Blood Pressure 144/87 112/52 123/85 Blood Pressure [Right] 07/21/19 07:58 Temperature Pulse Rate 74 Respiratory Rate Blood Pressure 144/87 Blood Pressure [Right] - Exam Narrative Exam: laying in bed Abdomen: Present: soft FHR: category 1 Uterine Contraction Pattern: Absent Extremities: normal - Labs Labs: Abnormal Labs 07/19/19 12:30 RBC 3.41 L Seg Neutrophils % 72.8 H - Results US- obstetric: pending
[2019-07-21] MEDS ORDERED: ASPIRIN 81 MG TAB CHEW PO SCH ×2 (10:00→11:00)
[2019-07-21] MEDS: PRENATAL VIT27-FE FUMARATE-FOLIC ACID VIT TAB PO SCH (10:33)
[2019-07-21] MEDS: DOCUSATE SODIUM 100 MG CAP PO SCH (10:36)
--- NOTE | 2019-07-21 10:36 | Event Note ---
Date: 07/21/19 Patient resting in bed, states no UC/s +FM but decreased this am, BPP 4/8 noted, however results inconsistent (2 for mvt but 0 for tone?) LORENA imporved. FHT's Cat 1, reactive: BPP 02/14. Dopplers pending. Observe closely. Findings explained to pt. questions answered, she voiced understanding
[2019-07-21] MEDS: FERROUS SULFATE 325 MG TAB PO SCH (10:37)
--- NOTE | 2019-07-21 11:32 | Ultrasound Report ---
. ULTRASOUND BIOPHYSICAL PROFILE ULTRASOUND OB LIMITED INDICATION: IUGR and Oligohydramnios TECHNIQUE: Transabdominal ultrasound imaging. COMPARISON: None FINDINGS: breathing movement = 0 Gross body movement = 2 tone = 0 Qualitative amniotic fluid volume = 2 Total biophysical score = 4/8 Amniotic fluid index is 9.9 cm. Presentation is cephalic. heart rate is 138 beats per minute. IMPRESSION: biophysical profile equals 4/8. Signer Name: Kike Quinteros Jr, MD Signed: 07/21/2019 11:28 AM Workstation Name: [id number]
--- NOTE | 2019-07-21 12:30 | Ultrasound Report ---
ULTRASOUND OB VELOCIMETRY UMBILICAL ARTERY HISTORY: Intrauterine growth restriction TECHNIQUE: Transabdominal ultrasound with color and spectral Doppler interrogation. FINDINGS: 3 segments of the umbilical cord were evaluated. heart rate measures 152 bpm. The average resis tive index measures 0.61. The average S/D ratio measures 2.61. Spectral waveforms are normal and persistent throughout. IMPRESSION: Unremarkable exam. Signer Name: Kike Quinteros Jr, MD Signed: 07/21/2019 12:25 PM Workstation Name: [id number]
--- NOTE | 2019-07-21 21:17 | Event Note ---
Date: 07/21/19 (pt resting No c/o voiced) Pt w/o complaint monitor Category 1 with reactivity BP wnl BPP ordered for in the AM Dr Vann made aware of assessment.
--- NOTE | 2019-07-22 07:28 | Progress Note ---
Assessment and Plan 33y/o @ 32+4 weeks; IUGR, CHTN well controlled on labetalol, oligiohydramnios resolved as of yesterday's u/s. steroids completed (07/19 & 07/20.) pt anxious to go home. [facility] recommendations: Continue to monitor for distress Repeat BPP today Continue Labetalol Continue 17P Continued hospitalization is advised if oligohydramnios persists and/or testing is not reassuring Delivery advised at 34 0/7 -37 0/7 - Patient Problems (1) Oligohydramnios antepartum Onset Date: ~07/20/19 Current Visit: Yes Status: Resolved Qualifiers: Fetus number: single or unspecified fetus Qualified Code(s): O41.00X0 - Oligohydramnios, unspecified trimester, not applicable or unspecified Plan to address problem: Spec exam done at admission- no evidence of PPROM IVF hydration monitor s/s PPROM steroids for lung maturity repeat LORENA 07/21 9.9 (2) HTN (hypertension) Onset Date: ~07/20/19 Current Visit: Yes Status: Acute Qualifiers: Hypertension type: essential hypertension Qualified Code(s): I10 - Essential (primary) hypertension Plan to address problem: Monitor b/p continue PO Labetalol 200mg BID (3) 32 weeks gestation of Current Visit: Yes Status: Acute (4) IUGR (intrauterine growth restriction) Onset Date: ~07/20/19 Current Visit: Yes Status: Acute Plan to address problem: repeat BPP this morning CAT 1 tracing noted NICU consult Subjective - Subjective Date of service: 07/22/19 Principal diagnosis: IUP@32w4d: IUGR; Htn; Oligo Interval history: EDC Calculations LMP: 09/12/2019 Past History : 7 Term Births: 4 Premature Births: 0 Living Children: 4 Para: 4 Aborta: 2 Elect. Ab: 0 Spont. Ab: 1 Ectopics: 1 # 1 Delivery date: 02/06/2002 Weeks Gestation: 38 Delivery type: Infant Sex: Female weight: 4#15 # 2 Delivery date: 06/09/2004 Weeks Gestation: 36 Delivery type: Sex: Male weight: 4#13 Comments: NICU 2-3wks for "lung development" # 3 Delivery date: 09/27/2008 Weeks Gestation: term Delivery type: Sex: Female weight: 7# Comments: IOL # 4 Delivery date: 08/01/2014 Weeks Gestation: term Delivery type: Sex: Male weight: 5#14 Comments: IOL- HTN # 5 Delivery date: 02/05/2018 Delivery type: ectopic Past Medical History: Reviewed history from 02/11/2018 and no changes required: Hypertension Past Surgical History: Reviewed history from 02/11/2018 and no changes required: D&C: Abdominal Surgery: (02/11/2018) LSC left salpingectomy Past Medical History Anesthesia Complications: negative Anemia: negative Autoimmune Disorder: negative Bleeding Disorder: negative Blood Transfusions: negative Breast Disease: negative Diabetes: negative Heart Disease: negative Hypertension: positive Hepatitis/Liver Disease: negative Kidney Disease/UTI: negative Neurologic/Epilepsy/Migraines: negative Phlebitis/Varicosities: negative Psychiatric: negative Pulmonary Disease/Asthma: negative Thyroid Disease: negative Hospitalizations: negative Social Hx: Marital Status: single Children: 4 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 Infection History Hx of STD: gc/ch Personal hx. of genital herpes: no Varicella/Chicken Pox Status: Previous Disease Genetic History Congenital Heart Defect: Mom: no Dad: no Ozzie Disease: Mom: no Dad: no Thalassemia Mom: no Dad: no Neural Tube Defect Mom: no Dad: no Down's Syndrome Mom: no Dad: no Awais-Sachs Mom: no Dad: no Sickle Cell Disease/Trait Mom: no Dad: no Hemophilia Mom: no Dad: no Muscular Dystrophy Mom: no Dad: no Cystic Fibrosis Mom: no Dad: no Sunflower Chorea Mom: no Dad: no Mental Retardation Mom: no Dad: no Fragile X Mom: no Dad: no Other Genetic/Chromosomal Disorder Mom: no Dad: no Child w/other defect Mom: no Dad: no Enviromental Exposures Xray Exposure: no Medication, drug, or alcohol use since LMP: no Chemical/Other Exposure: no Exposure to Cat Liter: no Hx of Parvovirus (Fifth Disease): no Occupational Exposure to Children: none Active Medications (reviewed today): LOTRISONE CRE () apply bid x 2 wks ORTHO MICRONOR 0.35 MG ORAL TABLET (NORETHINDRONE) 1 po q day as directed ONE-A-DAY WOMENS 50+ ADVANTAGE ORAL TABLET (MULTIPLE VITAMINS-MINERALS) IBUPROFEN PM TABLET (IBUPROFEN-DIPHENHYDRAMINE CIT TABS) Current Allergies (reviewed today): * KEFLEX (Critical) * GRISEOFULVIN (Critical) Patient reports: movement normal, no new complaints, no loss of fluid, no vaginal bleeding, no contractions Objective - Vital Signs Vital Signs: Vital Signs - 12hr 07/21/19 07/21/19 07/21/19 19:58 20:09 21:58 Temperature 98.4 F Pulse Rate 96 H 75 Respiratory 19 Rate Blood Pressure 126/63 131/60 07/21/19 22:00 Temperature Pulse Rate 75 Respiratory Rate Blood Pressure 131/60 - Exam Breasts: normal Cardiovascular: Regular rate Lungs: Clear to auscultation, Normal air movement Abdomen: Present: normal appearance, soft Vulva: both: normal Uterus: Present: normal, firm FHR: auscultation normal, category 1 Uterine Contraction Monitor Mode: External Uterine Contraction Pattern: Absent Uterine Tone Measurement Phase: Resting Extremities: normal Deep Tendon Reflex Grade: Normal +2 - Labs Labs: Abnormal Labs 07/19/19 12:30 RBC 3.41 L Seg Neutrophils % 72.8 H
[2019-07-22] MEDS: LACTATED RINGERS 1,000 ML IV SCH (09:26)
[2019-07-22] MEDS: DOCUSATE SODIUM 100 MG CAP PO SCH (09:26)
[2019-07-22] MEDS: FERROUS SULFATE 325 MG TAB PO SCH (09:28)
[2019-07-22] MEDS ORDERED: PRENATAL VIT27-FE FUMARATE-FOLIC ACID VIT TAB PO SCH (10:00)
[2019-07-22 11:56] VITALS: BP 152/81
--- NOTE | 2019-07-22 11:58 | Event Note ---
Date: 07/22/19 BPP 04/14. reviewed findings with Dr. Hinds, plan for d/c home. she has an appointment scheduled Thursday07/25/19@ 0800.
--- NOTE | 2019-07-22 12:01 | Discharge Summary ---
Providers - Providers Date of Admission: 07/19/19 12:19 Date of discharge: 07/22/19 (pt agrees with d/c home) Attending physician: CELIA MUNSON 07/19/19 12:24 Consult to Physician [CONS] Routine Comment: Consulting Provider: GASTON WALKER Physician Instructions: Reason For Exam: IUGR & Oligo, 32 weeks 07/21/19 10:36 Consult to Physician [CONS] Routine Comment: Consulting Provider: JULIANE BE Physician Instructions: Reason For Exam: IUGR at 32wga, Primary care physician: CELIA MUNSON Hospitalization Reason for admission: observation Discharge diagnosis: other (IUGR @ 32 weeks) Hospital course: IVF hydration, Oligo resolved. IUGR with reassuring surveillance Condition at discharge: Good Disposition: DC-01 TO HOME OR SELFCARE - Discharge Diagnoses (1) Oligohydramnios antepartum Status: Resolved Qualifiers: Fetus number: single or unspecified fetus Qualified Code(s): O41.00X0 - Oligohydramnios, unspecified trimester, not applicable or unspecified (2) HTN (hypertension) Status: Acute Qualifiers: Hypertension type: essential hypertension Qualified Code(s): I10 - Essential (primary) hypertension (3) 32 weeks gestation of Status: Acute (4) IUGR (intrauterine growth restriction) Status: Acute Plan - Provider Discharge Summary Activity: routine Diet: routine Instructions: routine Additional instructions: [] Smoking cessation referral if applicable(refer to patient education folder for contact #) [] Refer to [facility] Booklet Call your doctor immediately for: * Fever > 100.5 * Heavy vaginal bleeding ( >1 pad per hour) * Severe persistent headache * Shortness of breath * Reddened, hot, painful area to leg or breast * Drainage or odor from incision. * Keep incision clean and dry at all times and follow doctor's instructions regarding bathing/showering - Follow up plan Follow up: CELIA MUNSON MD [Primary Care Provider] - 7 Days (Appointment with [facility] scheduled for Wednesday 07/25 @ 0800.)
--- NOTE | 2019-07-25 08:16 | Ultrasound Report ---
Biophysical profile INDICATION: Oligohydramnios, IUGR COMPARISON: 07/21/2019 FINDINGS: The biophysical profile score on the prior study was 4 out of 8 with a score of 0 for breathing movement score of 0 for posture and tone. breathing movement: 2/2 movement: 2/2 posture and tone: 2/2 Qualitative amniotic fluid volume: 2/2 IMPRESSION: Total score for biophysical profile is 8/8 on today's exam heart rate is 137 bpm Signer Name: Kris Cruz MD Signed: 07/25/2019 8:11 AM Workstation Name: [id number]
== END 2019-07-22 14:05 | disposition home or self-care (01) | DRG 832 ==
LOC: TRG 12:01 → LD 12:02 → TRG 12:19
PROVIDERS: ADMIT Obstetrics & Gynecology; ATTEND Obstetrics & Gynecology
DX: O41.03X0 Oligohydramnios, third trimester, not applicable or unspecified (principal); O10.913 Unspecified pre-existing hypertension complicating pregnancy, third trimester; O36.5930 Maternal care for other known or suspected poor fetal growth, third trimester, not applicable or unspecified; O99.820 Streptococcus B carrier state complicating pregnancy; O99.213 Obesity complicating pregnancy, third trimester; Z79.82 Long term (current) use of aspirin; Z3A.32 32 weeks gestation of pregnancy; Z79.899 Other long term (current) drug therapy
CPT/HCPCS: 36415; 76815; 76819; 76820; 85025; 86850; 86900; 86901; 87116; G0378; J0702; J2765; J7120

== ENCOUNTER 2019-07-25 23:32 | Outpatient (CLI) | payer BC, OTHER ==
[2019-07-26 00:02] VITALS: BP 129/81
[2019-07-26] MEDS ORDERED: LACTATED RINGERS 1,000 ML IV ONE (00:44)
--- NOTE | 2019-07-26 04:31 | Ultrasound Report ---
Obstetrical ultrasound with biophysical profile. HISTORY: Decreased movement. FINDINGS: A single viable intrauterine has heart tones of 150 bpm. position is cephalic. Amniotic fluid index is 8.2. Biophysical profile is 8/8. IMPRESSION: 1. Biophysical profile 88. 2. Viable intrauterine . Signer Name: Carlos Neves MD Signed: 07/26/2019 4:26 AM Workstation Name: [id number]
== END 2019-07-26 02:04 | disposition home or self-care (01) ==
LOC: TRG 23:32
PROVIDERS: ATTEND Obstetrics & Gynecology
DX: O47.03 False labor before 37 completed weeks of gestation, third trimester (principal); I10 Essential (primary) hypertension; Z3A.33 33 weeks gestation of pregnancy; Z88.8 Allergy status to other drugs, medicaments and biological substances
CPT/HCPCS: 59025; 76815; 76819

== ENCOUNTER 2019-07-27 10:45 | Outpatient (CLI) | payer BC, OTHER ==
[2019-07-27] MEDS ORDERED: LACTATED RINGERS 500 ML IV ONE (11:30)
[2019-07-27 12:11] VITALS: BP 119/65
--- NOTE | 2019-07-27 12:33 | Ultrasound Report ---
ULTRASOUND OBSTETRIC LIMITED ULTRASOUND BIOPHYSICAL PROFILE INDICATION / CLINICAL INFORMATION: non reactive nst in office. COMPARISON: None available. FINDINGS: BREATHING MOVEMENT = 2 GROSS BODY MOVEMENT = 2 TONE = 2 QUALITATIVE AMNIOTIC FLUID VOLUME = 2 TOTAL BIOPHYSICAL SCORE = 8/8 AMNIOTIC FLUID INDEX (cm) = 9.0 PRESENTATION: Cephalic. HEART RATE (beats per minute): 156 ADDITIONAL FINDINGS: None. IMPRESSION: 1. Biophysical Score = 8/8 2. Normal LORENA. Signer Name: Travon Saldana MD Signed: 07/27/2019 12:28 PM Workstation Name: [id number]
== END 2019-07-27 12:45 | disposition home or self-care (01) ==
LOC: TRG 10:45
PROVIDERS: ATTEND Obstetrics & Gynecology
DX: O47.03 False labor before 37 completed weeks of gestation, third trimester (principal); O10.013 Pre-existing essential hypertension complicating pregnancy, third trimester; Z3A.33 33 weeks gestation of pregnancy; Z88.1 Allergy status to other antibiotic agents; Z88.8 Allergy status to other drugs, medicaments and biological substances
CPT/HCPCS: 76819

== ENCOUNTER 2019-08-18 10:19 | Inpatient (IN) | payer BC, OTHER ==
[2019-08-18] MEDS ORDERED: TERBUTALINE 1 MG/1 ML INJ SUB-Q PRN (10:40)
[2019-08-18] MEDS ORDERED: fentaNYL 100 MCG/2 ML INJ IV PRN (10:40)
[2019-08-18] MEDS ORDERED: LIDOCAINE (2%) 20 MG/1 ML VIAL 20 ML MDV INFILTRATI ONE (10:40)
[2019-08-18] MEDS ORDERED: AMPICILLIN/NS 2 GM/100 ML 2 GM/100 ML BAG IV ONE (10:40)
[2019-08-18] MEDS ORDERED: MINERAL OIL 30 ML ORAL LIQD PO PRN (10:40)
[2019-08-18] MEDS ORDERED: ONDANSETRON 4 MG/2 ML INJ IV PRN (10:40)
[2019-08-18] MEDS ORDERED: ePHEDrine SULFATE 50 MG/1 ML INJ IV PRN (10:40)
--- NOTE | 2019-08-18 10:52 | History and Physical Report ---
History of Present Illness Date of examination: 08/18/19 (sent from [facility] for IOL LORENA 2) Date of admission: 08-18-19 Chief complaint: pt presents for IOL History of present illness: EDC Confirmation: 09/12/2019 Gestational Age: 4 3/7 weeks Past History : 7 Term Births: 4 Premature Births: 0 Living Children: 4 Para: 4 Aborta: 2 Elect. Ab: 0 Spont. Ab: 1 Ectopics: 1 # 1 Delivery date: 02/06/2002 Weeks Gestation: 38 Delivery type: Sex: Female weight: 4#15 # 2 Delivery date: 06/09/2004 Weeks Gestation: 36 Delivery type: Sex: Male weight: 4#13 Comments: NICU 2-3wks for "lung development" # 3 Delivery date: 09/27/2008 Weeks Gestation: term Delivery type: Infant Sex: Female weight: 7# Comments: IOL # 4 Delivery date: 08/01/2014 Weeks Gestation: term Delivery type: Sex: Male weight: 5#14 Comments: IOL- HTN # 5 Delivery date: 02/05/2018 Delivery type: ectopic Past Medical History: Reviewed history from 02/11/2018 and no changes required: Hypertension Past Surgical History: Reviewed history from 02/11/2018 and no changes required: D&C: Abdominal Surgery: (02/11/2018) LSC left salpingectomy Past Medical History Anesthesia Complications: negative Anemia: negative Autoimmune Disorder: negative Bleeding Disorder: negative Blood Transfusions: negative Breast Disease: negative Diabetes: negative Heart Disease: negative Hypertension: positive Hepatitis/Liver Disease: negative Kidney Disease/UTI: negative Neurologic/Epilepsy/Migraines: negative Phlebitis/Varicosities: negative Psychiatric: negative Pulmonary Disease/Asthma: negative Thyroid Disease: negative Hospitalizations: negative Social Hx: Marital Status: single Children: 4 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 Infection History Hx of STD: gc/ch Personal hx. of genital herpes: no Varicella/Chicken Pox Status: Previous Disease Genetic History Congenital Heart Defect: Mom: no Dad: no Ozzie Disease: Mom: no Dad: no Thalassemia Mom: no Dad: no Neural Tube Defect Mom: no Dad: no Down's Syndrome Mom: no Dad: no Awais-Sachs Mom: no Dad: no Sickle Cell Disease/Trait Mom: no Dad: no Hemophilia Mom: no Dad: no Muscular Dystrophy Mom: no Dad: no Cystic Fibrosis Mom: no Dad: no [place] Chorea Mom: no Dad: no Mental Retardation Mom: no Dad: no Fragile X Mom: no Dad: no Other Genetic/Chromosomal Disorder Mom: no Dad: no Child w/other defect Mom: no Dad: no Enviromental Exposures Xray Exposure: no Medication, drug, or alcohol use since LMP: no Chemical/Other Exposure: no Exposure to Cat Liter: no Hx of Parvovirus (Fifth Disease): no Occupational Exposure to Children: none Active Medications (reviewed today): LOTRISONE CRE () apply bid x 2 wks ORTHO MICRONOR 0.35 MG ORAL TABLET (NORETHINDRONE) 1 po q day as directed ONE-A-DAY WOMENS 50+ ADVANTAGE ORAL TABLET (MULTIPLE VITAMINS-MINERALS) IBUPROFEN PM TABLET (IBUPROFEN-DIPHENHYDRAMINE CIT TABS) Current Allergies (reviewed today): * KEFLEX (Critical) * GRISEOFULVIN (Critical) Past History - Obstetrical History Expected Date of Delivery: 09/12/19 Actual Gestation: 36 Week(s) 3 Day(s) : 7 Para: 4 Hx # Term Pregnancies: 3 Number of Pregnancies: 1 Spontaneous Abortions: 1 Induced : 1 (ectopic) Number of Living Children: 4 Medications and Allergies Allergies Allergy/AdvReac Type Severity Reaction Status Date / Time cephalexin [From Keflex] Allergy Swelling Verified 02/25/19 17:12 [email or web address] Allergy Swelling Verified 02/25/19 17:12 Home Medications Medication Instructions Recorded Confirmed Last Taken Type Aspirin [Aspirin BABY CHEW TAB] 81 mg PO QDAY 07/13/19 07/26/19 07/25/19 History Iron 1 tab PO DAILY 07/13/19 07/26/19 07/25/19 History Vit-Fe Fumar-FA [ 1 tab PO DAILY 07/13/19 07/19/19 07/25/19 History Vitamin] labetaloL [Labetalol 200mg TAB] 200 mg PO BID 07/13/19 07/26/19 07/25/19 22:30 History Hydroxyprogesterone Caproate 07/26/19 07/21/19 History [Lili] Active Meds: Active Medications Ephedrine Sulfate (Ephedrine Sulfate) 10 mg IV Q2M PRN PRN Reason: Hypotension Fentanyl (Sublimaze) 100 mcg IV Q2H PRN PRN Reason: Labor Pain Oxytocin/Sodium Chloride (Pitocin/Ns 20 Unit/1000ml Drip) 20 units in 1,000 mls @ 125 mls/hr IV DIRECT SATHYA Oxytocin/Sodium Chloride (Pitocin/Ns 30 Unit/500ml) 30 units in 500 mls @ 4 mls/hr IV Q30MIN SATHYA; Protocol Lactated Ringer's (Lactated Ringers) 1,000 mls @ 125 mls/hr IV DIRECT SATHYA Ampicillin Sodium (Ampicillin/Ns 1 Gm/50 Ml) 1 gm in 50 mls @ 100 mls/hr IV Q4HR SATHYA; Protocol Ampicillin Sodium (Ampicillin/Ns 2 Gm/100 Ml) 2 gm in 100 mls @ 100 mls/hr IV ONCE ONE; Protocol Stop: 08/18/19 11:39 Labetalol HCl (Labetalol) 200 mg PO BID SATHYA Lidocaine (Xylocaine 2%) 20 ml INFILTRATI ONCE ONE Stop: 08/18/19 10:41 Mineral Oil (Mineral Oil) 30 ml PO QHS PRN PRN Reason: Constipation Ondansetron HCl (Zofran) 4 mg IV Q8H PRN PRN Reason: Nausea And Vomiting Terbutaline Sulfate (Brethine) 0.25 mg SUB-Q ONCE PRN PRN Reason: Hyperstimulation/Hypertonicity Valacyclovir HCl (Valtrex) 1,000 mg PO QDAY COUNTS INCLUDE 234 BEDS AT THE [facility] - Physical Exam Breasts: Positive: deferred Cardiovascular: Regular rate, Normal S1, Normal S2 Lungs: Positive: Clear to auscultation Abdomen: Positive: normal appearance, soft, normal bowel sounds. Negative: distention, tenderness Genitourinary (Female): Positive: normal external genitalia Vulva: both: normal Vagina: Positive: normal moisture. Negative: discharge Cervix: Negative: lesion, discharge Uterus: Positive: normal size, normal contour Adnexa: both: normal Anus/Rectum: Positive: normal perianal skin, heme negative. Negative: rectal mass, hemorrhoids Extremities: Positive: normal Deep Tendon Reflex Grade: Normal +2 - Obstetrical FHR: category 1 Uterine Contraction Monitor Mode: External Cervical Dilatation: 0 Cervical Effacement Percentage: 0 station: -3 Uterine Contraction Pattern: Irregular Uterine Tone Measurement Phase: Resting Uterine Contraction Intensity: Mild Results Result Diagrams: 08/18/19 13:03 All other labs normal. GBS POSITIVE HBsAg Screen Negative Negative *1 RPR Non Reactive Non Reactive *2 Rubella Antibodies, IgG 2.84 index Immune >0.99 *3 Non-immune <0.90 Equivocal 0.90 - 0.99 Immune >0.99 ABO Grouping O *4 Rh Factor Positive *5 Please note: Prior records for this patient's ABO / Rh type are not available for additional verification. Antibody Screen Negative Negative *6 WBC 7.2 x10E3/uL 3.4-10.8 *7 RBC [L] 3.42 x10E6/uL 3.77-5.28 *8 Hemoglobin [L] 10.1 g/dL 11.1-15.9 *9 Hematocrit [L] 31.7 % 34.0-46.6 *10 MCV 93 fL 79-97 *11 MCH 29.5 pg 26.6-33.0 *12 MCHC 31.9 g/dL 31.5-35.7 *13 RDW 14.7 % 12.3-15.4 *14 Platelets 252 x10E3/uL 150-450 *15 Neutrophils 69 % Not Estab. *16 Lymphs 23 % Not Estab. *17 Monocytes 7 % Not Estab. *18 Eos 1 % Not Estab. *19 Basos 0 % Not Estab. *20 ! Immature Cells <No Reported Value> *21 Neutrophils (Absolute) 4.9 x10E3/uL 1.4-7.0 *22 Lymphs (Absolute) 1.7 x10E3/uL 0.7-3.1 *23 Monocytes(Absolute) 0.5 x10E3/uL 0.1-0.9 *24 Eos (Absolute) 0.1 x10E3/uL 0.0-0.4 *25 Baso (Absolute) 0.0 x10E3/uL 0.0-0.2 *26 ! Immature Granulocytes 0 % Not Estab. *27 ! Immature Grans (Abs) 0.0 x10E3/uL 0.0-0.1 *28 ! NRBC <No Reported Value> *29 Hematology Comments: <No Reported Value> *30 Tests: (2) Panel 078849 ([id number]) HIV Screen 4th Generation wRfx Non Reactive Non Reactive *31 Tests: (3) HCV Ab w/Rflx to Verification ([id number]) ! HCV Ab <0.1 s/co ratio 0.0-0.9 *32 Tests: (4) Comment: ([id number]) ! Comment: SPRCS *33 Non reactive HCV antibody screen is consistent with no HCV infection, unless recent infection is suspected or other evidence exists to indicate HCV infection. Assessment and Plan 33yo @ 36 weeks sent from [facility] for IOL d/t oligo, IUGR,HTN Dr Crocker aware GBS+ All orders in EMR - Patient Problems (1) Group B Streptococcus carrier state affecting Onset Date: ~08/18/19 Current Visit: Yes Status: Acute Plan to address problem: GBS protocol (2) Herpes genitalis Current Visit: Yes Status: Acute Qualifiers: Herpes simplex infection site: cervicitis Qualified Code(s): A60.03 - Herpesviral cervicitis Plan to address problem: no lesions noted Pt denies any sx Valacylovir ordered QD (3) Oligohydramnios antepartum Onset Date: ~07/20/19 Current Visit: Yes Status: Acute Qualifiers: Fetus number: single or unspecified fetus Qualified Code(s): O41.00X0 - Oligohydramnios, unspecified trimester, not applicable or unspecified Plan to address problem: [facility] sent pt for IOL LORENA 2 in their office this AM (4) HTN (hypertension) Onset Date: ~07/20/19 Current Visit: Yes Status: Acute Qualifiers: Hypertension type: essential hypertension Qualified Code(s): I10 - Essential (primary) hypertension Plan to address problem: Will closely monitor BPs Cont Labetalol 200mg BID
[2019-08-18] MEDS ORDERED: OXYTOCIN 20 UNIT/1000ML DRIP 20 UNITS/1,000 ML BAG IV SCH (11:00)
[2019-08-18] MEDS ORDERED: valACYclovir 500 MG TAB PO SCH (11:00)
--- NOTE | 2019-08-18 12:35 | Progress Note ---
Assessment and Plan A: 33 y.o. @ 37+ weeks for IOL due to cHTN and Oligo. Cervix: cl/th/hi P: Plan for admission Subjective - Subjective Date of service: 08/18/19 (Pt doing well. Aware of admission and IOL.) Objective - Vital Signs Vital Signs: Vital Signs - 12hr 08/18/19 08/18/19 08/18/19 11:40 11:49 12:27 Temperature 97.8 F Pulse Rate 93 H 83 Respiratory 16 Rate Blood Pressure 134/80 130/70 - Exam Breasts: deferred Abdomen: Present: normal appearance Vulva: both: normal Uterine Contraction Monitor Mode: External Cervical Dilatation: 0 Cervical Effacement Percentage: 0 (Firm) station: -3 Uterine Contraction Pattern: Irregular Uterine Tone Measurement Phase: Resting Uterine Contraction Intensity: Mild Extremities: normal
[2019-08-18 13:26] LABS: Hematocrit 30.5 % (30.3-42.9); Hemoglobin 10.4 gm/dl (10.1-14.3); Mean Corpuscular HGB Conc 34 % (30-34); Mean Corpuscular Volume 90 fl (79-97); Platelet Count 237 K/mm3 (140-440); Red Blood Count 3.41 M/mm3 (3.65-5.03)
[2019-08-18] MEDS: LACTATED RINGERS 1,000 ML IV SCH (13:44)
[2019-08-18] MEDS ORDERED: DINOPROSTONE 10 MG VAG SUPP VG ONE (14:00)
[2019-08-18] MEDS ORDERED: AMPICILLIN/NS 1 GM/50 ML 1 GM/50 ML BAG IV SCH (14:43)
[2019-08-18 16:49] LABS: Alanine Aminotransferase 7 units/L (7-56); Uric Acid 4.6 mg/dL (3.5-7.6)
[2019-08-18] MEDS ORDERED: ZOLPIDEM 5 MG TAB PO ONE (20:18)
--- NOTE | 2019-08-18 20:25 | Progress Note ---
Assessment and Plan Pt req to eat. Family is going for some dinner. Colace po ordered. Continue Cervidil. Ambien ordered for sleep All questions addressed. - Patient Problems (1) Group B Streptococcus carrier state affecting Onset Date: ~08/18/19 Current Visit: Yes Status: Acute (2) Herpes genitalis Current Visit: Yes Status: Acute Qualifiers: Herpes simplex infection site: cervicitis Qualified Code(s): A60.03 - Herpesviral cervicitis (3) Oligohydramnios antepartum Onset Date: ~07/20/19 Current Visit: Yes Status: Acute Qualifiers: Fetus number: single or unspecified fetus Qualified Code(s): O41.00X0 - Oligohydramnios, unspecified trimester, not applicable or unspecified (4) HTN (hypertension) Onset Date: ~07/20/19 Current Visit: Yes Status: Acute Qualifiers: Hypertension type: essential hypertension Qualified Code(s): I10 - Essential (primary) hypertension Subjective - Subjective Date of service: 08/18/19 (pt called out requeesting to be checked) Principal diagnosis: IUP @ 36w3d IUGR,Oligo, Htn-on Labetalol, HSV2+ Interval history: EDC Confirmation: 09/12/2019 Gestational Age: 4 3/7 weeks Past History : 7 Term Births: 4 Premature Births: 0 Living Children: 4 Para: 4 Aborta: 2 Elect. Ab: 0 Spont. Ab: 1 Ectopics: 1 # 1 Delivery date: 02/06/2002 Weeks Gestation: 38 Delivery type: Infant Sex: Female weight: 4#15 # 2 Delivery date: 06/09/2004 Weeks Gestation: 36 Delivery type: Sex: Male weight: 4#13 Comments: NICU 2-3wks for "lung development" # 3 Delivery date: 09/27/2008 Weeks Gestation: term Delivery type: Sex: Female weight: 7# Comments: IOL # 4 Delivery date: 08/01/2014 Weeks Gestation: term Delivery type: Sex: Male weight: 5#14 Comments: IOL- HTN # 5 Delivery date: 02/05/2018 Delivery type: ectopic Past Medical History: Reviewed history from 02/11/2018 and no changes required: Hypertension Past Surgical History: Reviewed history from 02/11/2018 and no changes required: D&C: Abdominal Surgery: (02/11/2018) LSC left salpingectomy Past Medical History Anesthesia Complications: negative Anemia: negative Autoimmune Disorder: negative Bleeding Disorder: negative Blood Transfusions: negative Breast Disease: negative Diabetes: negative Heart Disease: negative Hypertension: positive Hepatitis/Liver Disease: negative Kidney Disease/UTI: negative Neurologic/Epilepsy/Migraines: negative Phlebitis/Varicosities: negative Psychiatric: negative Pulmonary Disease/Asthma: negative Thyroid Disease: negative Hospitalizations: negative Social Hx: Marital Status: single Children: 4 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 Infection History Hx of STD: gc/ch Personal hx. of genital herpes: no Varicella/Chicken Pox Status: Previous Disease Genetic History Congenital Heart Defect: Mom: no Dad: no Ozzie Disease: Mom: no Dad: no Thalassemia Mom: no Dad: no Neural Tube Defect Mom: no Dad: no Down's Syndrome Mom: no Dad: no Awais-Sachs Mom: no Dad: no Sickle Cell Disease/Trait Mom: no Dad: no Hemophilia Mom: no Dad: no Muscular Dystrophy Mom: no Dad: no Cystic Fibrosis Mom: no Dad: no [place] Chorea Mom: no Dad: no Mental Retardation Mom: no Dad: no Fragile X Mom: no Dad: no Other Genetic/Chromosomal Disorder Mom: no Dad: no Child w/other defect Mom: no Dad: no Enviromental Exposures Xray Exposure: no Medication, drug, or alcohol use since LMP: no Chemical/Other Exposure: no Exposure to Cat Liter: no Hx of Parvovirus (Fifth Disease): no Occupational Exposure to Children: none Active Medications (reviewed today): LOTRISONE CRE () apply bid x 2 wks ORTHO MICRONOR 0.35 MG ORAL TABLET (NORETHINDRONE) 1 po q day as directed ONE-A-DAY WOMENS 50+ ADVANTAGE ORAL TABLET (MULTIPLE VITAMINS-MINERALS) IBUPROFEN PM TABLET (IBUPROFEN-DIPHENHYDRAMINE CIT TABS) Current Allergies (reviewed today): * KEFLEX (Critical) * GRISEOFULVIN (Critical) Patient reports: movement normal Objective - Vital Signs Vital Signs: Vital Signs - 12hr 08/18/19 08/18/19 08/18/19 11:40 11:49 12:27 Temperature 97.8 F Pulse Rate 93 H 83 Respiratory 16 Rate Blood Pressure 134/80 130/70 O2 Sat by Pulse Oximetry 08/18/19 08/18/19 08/18/19 12:58 13:55 13:56 Temperature Pulse Rate 88 87 85 Respiratory Rate Blood Pressure 120/65 116/68 117/64 O2 Sat by Pulse Oximetry 08/18/19 08/18/19 08/18/19 14:26 14:56 15:21 Temperature Pulse Rate 82 81 74 Respiratory Rate Blood Pressure 137/84 122/69 O2 Sat by Pulse 100 Oximetry 08/18/19 08/18/19 08/18/19 15:26 15:28 15:31 Temperature Pulse Rate 73 76 76 Respiratory Rate Blood Pressure 138/89 O2 Sat by Pulse 100 100 Oximetry 08/18/19 08/18/19 08/18/19 15:36 15:41 15:46 Temperature Pulse Rate 81 82 75 Respiratory Rate Blood Pressure O2 Sat by Pulse 100 100 100 Oximetry 08/18/19 08/18/19 08/18/19 15:51 15:56 15:57 Temperature Pulse Rate 75 74 82 Respiratory Rate Blood Pressure 145/86 O2 Sat by Pulse 100 100 Oximetry 08/18/19 08/18/19 08/18/19 16:00 16:01 16:06 Temperature 97.6 F Pulse Rate 80 78 Respiratory Rate Blood Pressure O2 Sat by Pulse 100 100 Oximetry 08/18/19 08/18/19 08/18/19 16:11 16:16 17:57 Temperature Pulse Rate 84 80 80 Respiratory Rate Blood Pressure 118/66 O2 Sat by Pulse 100 100 Oximetry 08/18/19 08/18/19 08/18/19 18:27 18:57 19:27 Temperature Pulse Rate 83 89 85 Respiratory Rate Blood Pressure 131/67 124/74 134/72 O2 Sat by Pulse Oximetry 08/18/19 19:57 Temperature Pulse Rate 88 Respiratory Rate Blood Pressure 133/65 O2 Sat by Pulse Oximetry - Exam Breasts: deferred Cardiovascular: Regular rate Lungs: Normal air movement Abdomen: Present: normal appearance, soft. Absent: distention, tenderness Vulva: both: normal Uterus: Present: normal FHR: auscultation normal, category 1 Uterine Contraction Monitor Mode: External Cervical Dilatation: 0.5 (cervidil in place) Cervical Effacement Percentage: 60 (lg stool palpated in lower rectum) station: -3 Uterine Contraction Pattern: Irregular Uterine Tone Measurement Phase: Resting Uterine Contraction Intensity: Mild Extremities: edema Deep Tendon Reflex Grade: Normal +2 - Labs Labs: Abnormal Labs 08/18/19 08/18/19 13:03 16:11 RBC 3.41 L Creatinine 0.5 L Laboratory Results - last 24 hr 08/18/19 08/18/19 08/18/19 12:58 13:03 16:11 WBC 7.5 RBC 3.41 L Hgb 10.4 Hct 30.5 MCV 90 MCH 31 MCHC 34 RDW 15.0 Plt Count 237 Creatinine 0.5 L Estimated GFR > 60 Uric Acid 4.6 AST 15 ALT 7 Lactate Dehydrogenase 175 Blood Type O POSITIVE Antibody Screen Negative
[2019-08-18] MEDS ORDERED: DOCUSATE SODIUM 100 MG CAP PO SCH (22:00)
[2019-08-19] MEDS: LACTATED RINGERS 1,000 ML IV SCH ×2 (01:15→05:34)
[2019-08-19 02:15] LABS: Bilirubin,Urine NEG (Negative); Blood,Urine NEG (Negative); Color,Urine Yellow (Yellow); Protein,Urine <15 mg/dL mg/dL (Negative)
[2019-08-19] MEDS: OXYTOCIN DRIP 30 UNITS/500 ML BAG IV SCH ×2 (05:20→07:37)
--- NOTE | 2019-08-19 08:44 | Progress Note ---
Assessment and Plan Pitocin infusing per order, SVE now 60/-2, cephalic. AROM clear fluid, small amount. IVF open for epidural bolus, anticipate - Patient Problems (1) 36 weeks gestation of Current Visit: Yes Status: Acute (2) Group B Streptococcus carrier state affecting Onset Date: ~08/18/19 Current Visit: Yes Status: Acute Plan to address problem: Ampicillin q4h until delivery (3) HTN (hypertension) Onset Date: ~07/20/19 Current Visit: Yes Status: Acute Qualifiers: Hypertension type: essential hypertension Qualified Code(s): I10 - Essential (primary) hypertension Plan to address problem: Continue Labetalol PO (4) Herpes genitalis Current Visit: Yes Status: Acute Qualifiers: Herpes simplex infection site: cervicitis Qualified Code(s): A60.03 - Herpesviral cervicitis Plan to address problem: no signs of an outbreak (5) IUGR (intrauterine growth restriction) Onset Date: ~07/20/19 Current Visit: Yes Status: Acute (6) Oligohydramnios antepartum Onset Date: ~07/20/19 Current Visit: Yes Status: Acute Qualifiers: Fetus number: single or unspecified fetus Qualified Code(s): O41.00X0 - Oligohydramnios, unspecified trimester, not applicable or unspecified Subjective - Subjective Date of service: 08/19/19 Principal diagnosis: IUP @ 36w4d IUGR,Oligo, Htn-on Labetalol, HSV2+ Patient reports: movement normal, contractions Objective - Vital Signs Vital Signs: Vital Signs - 12hr 08/18/19 08/18/19 08/18/19 22:20 22:50 22:53 Temperature Pulse Rate 109 H 103 H 97 H Respiratory Rate Blood Pressure 145/75 172/84 169/84 Blood Pressure [Right] 08/18/19 08/18/19 08/18/19 23:01 23:05 23:10 Temperature Pulse Rate 100 H 100 H 104 H Respiratory Rate Blood Pressure 137/75 140/77 141/74 Blood Pressure [Right] 08/18/19 08/18/19 08/19/19 23:38 23:46 01:44 Temperature 98.2 F Pulse Rate 100 H 92 H Respiratory Rate Blood Pressure 138/84 110/56 Blood Pressure [Right] 08/19/19 08/19/19 08/19/19 02:15 02:46 03:44 Temperature Pulse Rate 90 93 H 91 H Respiratory Rate Blood Pressure 115/59 108/59 114/57 Blood Pressure [Right] 08/19/19 08/19/19 08/19/19 04:15 04:44 05:14 Temperature Pulse Rate 88 86 85 Respiratory Rate Blood Pressure 119/56 137/82 139/77 Blood Pressure [Right] 08/19/19 08/19/19 08/19/19 05:44 06:15 08:23 Temperature Pulse Rate 86 84 77 Respiratory Rate Blood Pressure 143/79 147/76 145/85 Blood Pressure [Right] 08/19/19 08:24 Temperature 98.4 F Pulse Rate 77 Respiratory 18 Rate Blood Pressure Blood Pressure 145/85 [Right] - Exam Breasts: normal Cardiovascular: Regular rate Lungs: Normal air movement Abdomen: Present: normal appearance, soft Vulva: both: normal (no evidence of HSV lesion) Uterus: Present: normal FHR: auscultation normal Uterine Contraction Monitor Mode: External Cervical Dilatation: 4 (AROM - small clear) Cervical Effacement Percentage: 60 station: -2 Uterine Contraction Frequency (min): 3-5 Uterine Contraction Duration: 60 Uterine Contraction Pattern: Regular Uterine Tone Measurement Phase: Contraction Uterine Contraction Intensity: Moderate Extremities: normal Deep Tendon Reflex Grade: Normal +2 - Labs Labs: Abnormal Labs 08/18/19 08/18/19 08/19/19 13:03 16:11 01:43 RBC 3.41 L Creatinine 0.5 L Urine pH 8.0 H Laboratory Results - last 24 hr 08/18/19 08/18/19 08/18/19 12:58 13:03 16:11 WBC 7.5 RBC 3.41 L Hgb 10.4 Hct 30.5 MCV 90 MCH 31 MCHC 34 RDW 15.0 Plt Count 237 Creatinine 0.5 L Estimated GFR > 60 Uric Acid 4.6 AST 15 ALT 7 Lactate Dehydrogenase 175 Urine Color Urine Turbidity Urine pH Ur Specific [place] Urine Protein Urine Glucose (UA) Urine Ketones Urine Blood Urine Nitrite Urine Bilirubin Urine Urobilinogen Ur Leukocyte Esterase Urine WBC (Auto) Urine RBC (Auto) U Epithel Cells (Auto) Syphilis IgG Antibody Blood Type O POSITIVE Antibody Screen Negative 08/18/19 08/19/19 16:11 01:43 WBC RBC Hgb Hct MCV MCH MCHC RDW Plt Count Creatinine Estimated GFR Uric Acid AST ALT Lactate Dehydrogenase Urine Color Yellow Urine Turbidity Clear Urine pH 8.0 H Ur Specific [place] 1.016 Urine Protein <15 mg/dl Urine Glucose (UA) Neg Urine Ketones Neg Urine Blood Neg Urine Nitrite Neg Urine Bilirubin Neg Urine Urobilinogen 4.0 Ur Leukocyte Esterase Neg Urine WBC (Auto) 1.0 Urine RBC (Auto) 2.0 U Epithel Cells (Auto) 2.0 Syphilis IgG Antibody Non-reactive Blood Type Antibody Screen
[2019-08-19] MEDS ORDERED: DEXMEDETOMIDINE 200 MCG/2 ML VIAL IV ONE (09:14)
[2019-08-19] MEDS ORDERED: SODIUM CHLORIDE P/F VIAL 10 ML 10 ML ONE (09:14)
--- NOTE | 2019-08-19 09:48 | Anesthesia Consultation ---
Anesthesia Consult and Med Hx Date of service: 08/19/19 - Airway Anesthetic Teeth Evaluation: Good ROM Head & Neck: Adequate Mental/Hyoid Distance: Adequate Mallampati Class: Class II Intubation Access Assessment: Probably Good - Pulmonary Exam CTA: Yes - Cardiac Exam Cardiac Exam: RRR - Pre-Operative Health Status ASA Pre-Surgery Classification: ASA3 Proposed Anesthetic Plan: Epidural - Pulmonary Hx Asthma: No COPD: No Hx Pneumonia: No - Cardiovascular System Hx Hypertension: Yes - Central Nervous System Hx Seizures: No Hx Psychiatric Problems: No - Endocrine Hx Renal Disease: No Hx End Stage Renal Disease: No Hx Hypothyroidism: No Hx Hyperthyroidism: No - Hematic Hx Anemia: No Hx Sickle Cell Disease: No - Other Systems Hx Alcohol Use: No Hx Obesity: Yes
[2019-08-19] MEDS ORDERED: NALOXONE 2 MG/2 ML INJ IV PRN (10:30)
[2019-08-19] MEDS ORDERED: ePHEDrine SULFATE 50 MG/1 ML INJ IV PRN (10:30)
[2019-08-19] MEDS ORDERED: fentaNYL-BUPIV 2 MCG/ML-0.125% 200 MCG/100 ML BAG EPIDURAL SCH (10:30)
[2019-08-19] MEDS ORDERED: miSOPROStol 100 MCG TAB ONE (11:09)
[2019-08-19] MEDS ORDERED: miSOPROStol 200 MCG TAB ONE (11:11)
--- NOTE | 2019-08-19 11:24 | Procedure Note ---
OB Delivery Note - Delivery Date of Delivery: 08/19/19 ( Male ) [employer]: ALISTAIR MCINTYRE Estimated blood loss: 500cc - Vaginal Delivery presentation: vertex Delivery position: OA Intrapartum events: extend. bradycardia (immediatly prior to delivery) Delivery induction: oxytocin Delivery augmentation: rupture of membranes, pitocin Delivery monitor: external uterine, internal FHT Route of delivery: Delivery placenta: spontaneous (sent to pathology, marginal cord insertion) Delivery cord: 3 umbilical vessels Episiotomy: none Delivery laceration: none Anesthesia: epidural Delivery comments: Called by RN to room for delivery @ 1049, arrived 1053, FHT in the 50's, patient on right side with o2 mask on. head . She delivered with one push. Cord clamped x2 and cut, transferred to warmer for assessment and resuscitation by NICU team. Cord blood collected. Placenta del intact and c omplete, marginal cord insertion noted. Placenta to pathology. no laceration to repair. Fundus boggy, firms with massage but then return boggy. cytotec 700mcg placed rectally. Apgars 3/7, wt 5#4, EBL 500. Mother and baby LDR stable. - A at 1 minute: 3 at 5 minutes: 7 Gender: Male (5#4oz)
[2019-08-19] MEDS ORDERED: miSOPROStol 200 MCG TAB PR ONE (11:34)
[2019-08-19] MEDS ORDERED: MAGNESIUM HYDROXIDE (MOM) ORAL LIQD UDC PO PRN (14:36)
[2019-08-19] MEDS ORDERED: diphenhydrAMINE 25 MG CAP PO PRN (14:36)
[2019-08-19] MEDS ORDERED: WITCH HAZEL/ GLYCERIN PAD TP PRN (14:36)
[2019-08-19] MEDS ORDERED: ACETAMINOPHEN 325 MG TAB PO PRN (14:36)
[2019-08-19] MEDS ORDERED: LANOLIN/ZINC/DIMETHICONE (LANSINOH) 7 GM TP PRN (14:36)
[2019-08-19] MEDS ORDERED: PROMETHAZINE 25 MG TAB PO PRN (14:36)
[2019-08-19] MEDS ORDERED: BENZOCAINE/MENTHOL 20/0.5% TOP SPRAY 56 GM TP PRN (14:36)
[2019-08-19] MEDS: IBUPROFEN 800 MG TAB PO SCH ×3 (16:33→23:40)
[2019-08-19 23:37] LABS: Hematocrit 29.3 % (30.3-42.9)
[2019-08-20] MEDS ORDERED: TETANUS,DIPH,PERTUSS(ACELL) VACCINE 0.5 ML SYRINGE IM ONE (06:00)
[2019-08-20] MEDS: IBUPROFEN 800 MG TAB PO SCH ×3 (06:15→17:36)
--- NOTE | 2019-08-20 08:41 | Discharge Summary ---
Providers - Providers Date of Admission: 08/18/19 10:20 Date of discharge: 08/20/19 (desires d/c home) Attending physician: YAMILET JOHNSON Primary care physician: YAMILET JOHNSON Hospitalization Reason for admission: Induction of labor Condition: Good Pertinent studies: H&H 07/05.3 Procedures: Hospital course: uncomplicated and course Disposition: DC-01 TO HOME OR SELFCARE - Discharge Diagnoses (1) HTN (hypertension) Status: Acute Qualifiers: Hypertension type: essential hypertension Qualified Code(s): I10 - Essential (primary) hypertension (2) (spontaneous vaginal delivery) Status: Acute Core Measure Documentation - Palliative Care Palliative Care/ Comfort Measures: Not Applicable - Core Measures Any of the following diagnoses?: none Exam - Constitutional Vitals: Temp Pulse Resp BP Pulse Ox 98.3 F 90 20 132/57 99 08/19/19 23:27 08/20/19 05:22 08/19/19 23:27 08/20/19 05:22 08/20/19 05:22 General appearance: Present: no acute distress, well-nourished - EENT Eyes: Present: PERRL ENT: hearing intact, clear oral mucosa - Neck Neck: Present: supple, normal ROM - Respiratory Respiratory effort: normal Respiratory: bilateral: CTA - Cardiovascular Rhythm: regular - Extremities Extremities: No edema - Abdominal General gastrointestinal: Present: soft, non-tender, non-distended, normal bowel sounds Female genitourinary: Present: normal - Integumentary Integumentary: Present: clear, warm, dry - Musculoskeletal Musculoskeletal: gait normal, strength equal bilaterally - Psychiatric Psychiatric: appropriate mood/affect, intact judgment & insight - Neurologic Neurologic: CNII-XII intact, moves all extremities Plan Activity: no restrictions Diet: regular Follow up with: YAMILET JOHNSON MD [Primary Care Provider] - 7 Days (Congratulations! Please call [phone] to schedule your son's circumcision in 1 week and your visit in 4 weeks. Bring EMLA cream to your son's visit and await further teaching. Call for any questions or concerns.) Prescriptions: Lidocain2.5%/Prilocai2.5% [Emla] 5 gm TP ONCE PRN #1 tube PRN Reason: Pain labetaloL [Labetalol 200mg TAB] 200 mg PO BID #60 tablet Ibuprofen [Motrin 800 MG tab] 800 mg PO Q8HR PRN #30 tablet PRN Reason: Pain
[2019-08-20] MEDS: PRENATAL VIT27-FE FUMARATE-FOLIC ACID VIT TAB PO SCH (09:25)
--- NOTE | 2019-08-20 15:00 | Vascular Lab Report ---
DUPLEX DOPPLER LOWER EXTREMITY VEINS, BILATERAL INDICATION: Positive Homans sign.. TECHNIQUE: Duplex doppler imaging was performed through the veins of both lower extremities using venous candy gus and other maneuvers. COMPARISON: None available. FINDINGS: Right Common Femoral vein: Negative. Right Superficial Femoral vein: Negative. Right Popliteal vein: Negative. Right Calf veins: Negative. Left Common Femoral vein: Negative. Left Superficial Femoral vein: Negative. Left Popliteal vein: Negative. Left Calf veins: Negative. Additional findings: None. IMPRESSION: 1. No sonographic evidence for DVT in either lower extremity. Signer Name: Tasha Mata MD Signed: 08/20/2019 2:56 PM Workstation Name: [id number]
[2019-08-21] MEDS: PRENATAL VIT27-FE FUMARATE-FOLIC ACID VIT TAB PO SCH (08:57)
[2019-08-21] MEDS: IBUPROFEN 800 MG TAB PO SCH ×2 (09:00)
[2019-08-21 16:46] VITALS: BP 129/68
== END 2019-08-21 17:55 | disposition home or self-care (01) | DRG 806 ==
LOC: TRG 10:19 → LD 10:20 → OB 08-19 15:44
PROVIDERS: ADMIT Obstetrics & Gynecology; ATTEND Obstetrics & Gynecology
PROC: 3E0P7VZ Introduction of Hormone into Female Reproductive, Via Natural or Artificial Opening (ICD-10-PCS; 2019-08-18)
PROC: 10E0XZZ Delivery of Products of Conception, External Approach (ICD-10-PCS; principal; 2019-08-19)
PROC: 10907ZC Drainage of Amniotic Fluid, Therapeutic from Products of Conception, Via Natural or Artificial Opening (ICD-10-PCS; 2019-08-19)
PROC: 3E0R3BZ Introduction of Anesthetic Agent into Spinal Canal, Percutaneous Approach (ICD-10-PCS; 2019-08-19)
PROC: 00HU33Z Insertion of Infusion Device into Spinal Canal, Percutaneous Approach (ICD-10-PCS; 2019-08-19)
PROC: 3E0234Z Introduction of Serum, Toxoid and Vaccine into Muscle, Percutaneous Approach (ICD-10-PCS; 2019-08-20)
DX: O10.02 Pre-existing essential hypertension complicating childbirth (principal); O41.03X0 Oligohydramnios, third trimester, not applicable or unspecified; Z37.0 Single live birth; O98.32 Other infections with a predominantly sexual mode of transmission complicating childbirth; O99.824 Streptococcus B carrier state complicating childbirth; A60.03 Herpesviral cervicitis; O99.334 Smoking (tobacco) complicating childbirth; O76 Abnormality in fetal heart rate and rhythm complicating labor and delivery; F17.200 Nicotine dependence, unspecified, uncomplicated; O99.214 Obesity complicating childbirth; O43.123 Velamentous insertion of umbilical cord, third trimester; Z3A.36 36 weeks gestation of pregnancy; Z23 Encounter for immunization; Z90.79 Acquired absence of other genital organ(s); Z88.8 Allergy status to other drugs, medicaments and biological substances; Z79.899 Other long term (current) drug therapy; Z79.82 Long term (current) use of aspirin
CPT/HCPCS: 36415; 59200; 81001; 82565; 83615; 84450; 84460; 84550; 85014; 85018; 85027; 86592; 86850; 86900; 86901; 88307; 93970; G0378; J0290; J2590; J3490; J7120

== ENCOUNTER 2020-09-27 06:54 | Outpatient (CLI) | payer BC ==
[2020-09-27 07:27] LABS: Basophils # (Auto) 0.1 K/mm3 (0.0-0.1); Eosinophils # (Auto) 0.1 K/mm3 (0.0-0.4); Hematocrit 32.7 % (30.3-42.9); Hemoglobin 11.4 gm/dl (10.1-14.3); Lymphocytes # (Auto) 2.2 K/mm3 (1.2-5.4); Lymphocytes % (Auto) 36.8 % (13.4-35.0); Mean Corpuscular HGB Conc 35 % (30-34); Mean Corpuscular Volume 88 fl (79-97); Monocytes # (Auto) 0.4 K/mm3 (0.0-0.8); Platelet Count 237 K/mm3 (140-440); Red Blood Count 3.71 M/mm3 (3.65-5.03); Red Cell Distribution Width 14.4 % (13.2-15.2)
[2020-09-27 07:43] LABS: Alanine Aminotransferase 12 units/L (7-56); Albumin 4.1 g/dL (3.9-5); BUN/Creatinine Ratio 14; Blood Urea Nitrogen 11 mg/dL (7-17); Calcium 9.2 mg/dL (8.4-10.2); HDL Cholesterol 83 mg/dL (40-59); Hemolysis Index 0; LDL Cholesterol,Direct 76 mg/dL (50-130)
--- NOTE | 2020-09-27 08:19 | Mammography Report ---
DIGITAL SCREENING MAMMOGRAM WITH CAD, 09/27/2020 CLINICAL INFORMATION / INDICATION: Routine screening mammography. ROUTINE TECHNIQUE: Digital bilateral 2D mammography was obtained in the craniocaudal and mediolateral obliqu e projections. This examination was interpreted with the benefit of Computer-Aided Detection analysis . COMPARISON: Baseline FINDINGS: Breast Density: The breasts are almost entirely fatty. No dominant mass, suspicious calcifications, or architectural distortion in the right breast. There is a 1.5 cm ovoid nodular density in the left medial breast 5 cm from the nipple in the anterio r depth, best seen on the cc view. The lesion appears to be located inferiorly on the MLO view at shantel roximately the 7 to 8:00 position. No other abnormality is seen. IMPRESSION: 1.5 cm nodular density in the left breast inferomedially. Left breast ultrasound is recom mended for initial evaluation. Spot compression views could be performed if necessary. Follow up recommendation: Ultrasound BI-RADS Category 0: Incomplete. Needs additional imaging evaluation and/or prior mammograms for nahomy mcgill. A "normal" or negative report should not discourage follow up or biopsy of a clinically significant f inding. A written summary of these findings will be mailed to the patient. The patient will be entered into a mammography reporting system which will generate a reminder letter for the patient's next appointmen t at the appropriate interval. The [employer] recommends yearly mammograms starting at age 40 and continuing as l aquilino as a woman is in good health. Breast MRI is recommended for women with an approximate 20-25% or greater lifetime risk of breast cancer, including women with a strong family history of breast or ova amor cancer or who have been treated for Hodgkin's disease. Signer Name: Guille Pratt MD Signed: 09/27/2020 8:15 AM Workstation Name: [id number]
== END 2020-09-27 06:55 | disposition home or self-care (01) ==
LOC: MAMMO 06:54
PROVIDERS: ATTEND Internal Medicine
DX: Z12.31 Encounter for screening mammogram for malignant neoplasm of breast (principal); Z00.00 Encounter for general adult medical examination without abnormal findings; Z13.1 Encounter for screening for diabetes mellitus; Z12.39 Encounter for other screening for malignant neoplasm of breast
CPT/HCPCS: 36415; 77067; 80053; 80061; 82306; 82607; 83036; 84443; 85025

== ENCOUNTER 2020-10-11 08:15 | Outpatient (CLI) | payer BC ==
--- NOTE | 2020-10-11 09:48 | Ultrasound Report ---
LEFT DIGITAL DIAGNOSTIC MAMMOGRAM WITH CAD CONVENTIONAL, 10/11/2020 LEFT LIMITED BREAST ULTRASOUND CLINICAL INFORMATION / INDICATION: Abnormal screening mammogram TECHNIQUE: Digital left mammographic imaging was performed. Spot compression views were obtained. Carter it ultrasound was performed. This examination was interpreted with the benefit of Computer-Aided De tection (CAD) analysis. COMPARISON: Screening mammogram 09/27/2020 FINDINGS: Breast Density: There are scattered areas of fibroglandular density. MAMMOGRAPHIC FINDINGS: The asymmetric focal density in the medial left breast, mid depth, seen on [facility] screening examination continues with spot compression views though becomes more diffuse and les s prominent in size. The dense portion of this area now measures roughly 7 mm. Borders are ill-define d. ULTRASOUND FINDINGS: Targeted ultrasound evaluation was performed of the area of interest. In the 9 :00 position, 5 cm from the nipple, corresponding to the radiographic abnormality, an ovoid mixed ech ogenicity apparent nodule is seen measuring approximately 5 mm in diameter. This is mostly hypoechoic with some internal hyperechogenicity. No vascularity or shadowing are noted. Borders are microlobula malia. No other lesions are seen. IMPRESSION: Mammographically density becomes smaller and less obvious though is still persistent. A c orresponding nodule with irregular margins is seen by ultrasound. This is of low suspicion for malign melida. Follow up recommendation: Ultrasound-guided left breast biopsy. Postbiopsy mammogram is recommended t o correlate with prebiopsy images. BI-RADS Category 4: Suspicious for Malignancy. A "normal" or negative report should not discourage follow up or biopsy of a clinically significant f inding. A written summary of these findings will be mailed to the patient. The patient will be entered into a mammography reporting system which will generate a reminder letter for the patient's next appointmen t at the appropriate interval. According to the [employer], yearly mammograms are recommended starting at age 40 and continuing as long as a woman is in good health. Breast MRI is recommended for women with an shantel roximately 20-25% or greater lifetime risk of breast cancer, including women with a strong family his tory of breast or ovarian cancer and women who have been treated for Hodgkin's disease. Signer Name: Steven Bangura MD Signed: 10/11/2020 9:44 AM Workstation Name: [email or web address]
== END 2020-10-11 08:16 | disposition home or self-care (01) ==
LOC: MAMMO 08:15
PROVIDERS: ATTEND Internal Medicine
DX: R92.8 Other abnormal and inconclusive findings on diagnostic imaging of breast (principal)

== ENCOUNTER 2020-10-29 07:46 | Outpatient (CLI) | payer BC ==
--- NOTE | 2020-10-29 09:44 | Ultrasound Report ---
ULTRASOUND BREAST LEFT LIMITED, 10/29/2020 CLINICAL INFORMATION / INDICATION: Follow-up of left breast nodule. TECHNIQUE: Targeted ultrasound evaluation was performed of the area of interest. COMPARISON: Left breast ultrasound and diagnostic left mammogram performed on 10/11/2020. FINDINGS: Targeted ultrasound evaluation of the 9:00 position of the left breast 5 cm from the nipple was perfo rmed. Only 2 sonographic images were submitted for review. On these 2 images, the previously describe d nodule is not clearly identified. No other significant abnormality is seen. IMPRESSION: Limited ultrasound evaluation of the left breast without visualization of the previously described nodule. A diagnostic left mammogram and left breast ultrasound in 6 months is recommended. Follow up recommendation: Special View: Spot BI-RADS Category 3: Probably Benign. Followup in 6 months. A normal or "negative" report should not preclude biopsy or follow-up of a clinically suspicious find ing. Signer Name: Travon Saldana MD Signed: 10/29/2020 9:39 AM Workstation Name: [id number]
== END 2020-10-29 07:47 | disposition home or self-care (01) ==
LOC: US 07:46
PROVIDERS: ATTEND Surgery
DX: R92.8 Other abnormal and inconclusive findings on diagnostic imaging of breast (principal)

== ENCOUNTER 2020-11-20 11:00 | Outpatient (CLI) | payer BC ==
--- NOTE | 2020-11-20 16:40 | Magnetic Resonance Report ---
BILATERAL BREAST MRI WITH AND WITHOUT CONTRAST CLINICAL INFORMATION/INDICATION: Recent abnormal left mammogram and ultrasound. Family history of mary ast carcinoma TECHNICAL: Coronal STIR, axial T1 and T2-weighted fat sat images were obtained precontrast. 19 cc Mul tiHance contrast was injected intravenously and serial axial T1 weighted images with fat saturation w ere obtained. 3-D MIP projections, kinetic analysis and subtraction imaging was utilized to evaluate. A dedicated 8-channel breast coil was used for image acquisition. COMPARISON: Recent multiple mammograms and ultrasounds including 09/27/2020 10/11/2020 and 10/29/2020 FINDINGS: Breast Density: The breasts are almost entirely fatty. Background Parenchymal Enhancement: Mild Right breast: No mass, suspicious focus of enhancement or lymphadenopathy. Left breast: No mass, suspicious focus of enhancement or lymphadenopathy. However, there is a benign oval density seen in the lower inner quadrant of the left breast, anterior depth, that corresponds to the mammographic asymmetry noted on the original screening mammogram 09/27/2020. However this shows n o enhancement and therefore should be benign. Additional findings: None. IMPRESSION: Probably benign 1. No definite evidence of malignancy. 2. The small focal asymmetry identified in the left breast, lower inner quadrant is visible on MRI bu t shows no suspicious enhancement. Since the screening mammogram was patient's baseline mammogram and therefore, there are no older studies for comparison, a six-month follow-up left mammogram is recomm ended to confirm stability of this highly likely benign lesion. 3. Normal MRI of the right breast. Follow up recommendation: 6 month follow-up left mammogram BI-RADS Category 3: Probably Benign. Followup in 6 months. Signer Name: Tasha Mata MD Signed: 11/20/2020 4:35 PM Workstation Name: [id number]
== END 2020-11-20 11:01 | disposition home or self-care (01) ==
LOC: SPVIMAG 11:00
PROVIDERS: ATTEND Surgery
DX: N63.24 Unspecified lump in the left breast, lower inner quadrant (principal); R92.8 Other abnormal and inconclusive findings on diagnostic imaging of breast; Z80.42 Family history of malignant neoplasm of prostate; Z80.3 Family history of malignant neoplasm of breast
CPT/HCPCS: A9575; C8908; 77049

== ENCOUNTER 2021-02-20 10:57 | Outpatient (CLI) | payer BC ==
--- NOTE | 2021-02-20 13:21 | XRay Report ---
LEFT KNEE 2 VIEWS INDICATION: PAIN IN LEFT KNEE. COMPARISON: None. IMPRESSION: No acute osseous or soft tissue abnormality. No significant DJD. Signer Name: Kike Quinteros Jr, MD Signed: 02/20/2021 1:12 PM Workstation Name: [id number]
== END 2021-02-20 10:58 | disposition home or self-care (01) ==
LOC: XRAY 10:57
PROVIDERS: ATTEND Internal Medicine
DX: M25.562 Pain in left knee (principal)

== ENCOUNTER 2021-02-27 07:05 | Outpatient (CLI) | payer BC ==
--- NOTE | 2021-02-27 09:23 | Magnetic Resonance Report ---
MRI LEFT KNEE WITHOUT CONTRAST INDICATION / CLINICAL INFORMATION: PAIN IN LEFT KNEE. TECHNIQUE: Multiplanar, multisequence MR images were obtained. No contrast used. COMPARISON: Radiographs left knee 02/20/2021. FINDINGS: ACL: Moderate mucoid degenerative change of the ACL with intact fibers. PCL: No significant abnormality. DISTAL QUADRICEPS TENDON: No significant abnormality. PATELLAR TENDON: No significant abnormality. MEDIAL MENISCUS: No significant abnormality. LATERAL MENISCUS: Mild intrasubstance degenerative signal anterior horn without discrete tear. POSTEROLATERAL CORNER: No significant abnormality. MCL: No significant abnormality. LCL: No significant abnormality. DISTAL IT BAND: No significant abnormality. PATELLOFEMORAL ALIGNMENT: No significant abnormality. ARTICULAR CARTILAGE: No significant chondrosis or focal chondral defect. JOINT SPACE: Moderate knee joint effusion. No significant popliteal cyst. No intra-articular bodies. BONES: No significant bone marrow edema. No fracture. No osseous lesion. SOFT TISSUES: No significant abnormality. ADDITIONAL FINDINGS: None. IMPRESSION: 1. Intrasubstance degenerative signal involving the anterior horn of the lateral meniscus without dis crete meniscal tear. 2. Moderate mucoid degenerative changes of the ACL. No acute ligament injury. 3. Moderate knee joint effusion. Report dictated by: Loco Collier MD Report dictated on: 02/27/2021 7:51 AM I have reviewed the images, agree with this report, and edited this report as needed. Signer Name: Rqoue Clay MD FACR Signed: 02/27/2021 9:18 AM Workstation Name: [id number]
== END 2021-02-27 07:06 | disposition home or self-care (01) ==
LOC: MRI 07:05
PROVIDERS: ATTEND Internal Medicine
DX: M25.462 Effusion, left knee (principal); M17.12 Unilateral primary osteoarthritis, left knee
CPT/HCPCS: 73721

== ENCOUNTER 2021-09-25 04:40 | Emergency (ER) | payer SELFPAY ==
[2021-09-25] MEDS ORDERED: IBUPROFEN 800 MG TAB PO STA (06:55)
[2021-09-25] MEDS ORDERED: HYDROcodone/ACETAMINOPHEN 5-325 MG TAB PO ONE (06:56)
--- NOTE | 2021-09-25 07:01 | Emergency Department Report ---
ED General Adult HPI - General Chief complaint: Extremity Injury, Lower Stated complaint: FOOT PAIN Time Seen by Provider: 09/25/21 06:34 Source: patient Mode of arrival: Wheelchair Limitations: Physical Limitation - History of Present Illness Initial comments: 36-year-old -[place] female patient presents with complaints of left ankle pain and swelling after a twist and fall injury yesterday. She rates her pain as a 10/10 in severity and states she is unable to walk on it due to the pain. No numbness/tingling or skin changes per patient. Drug allergies include Keflex. Ibuprofen at home not helping with pain per patient. - Related Data Home Medications Medication Instructions Recorded Confirmed Last Taken Aspirin [Aspirin BABY CHEW TAB] 81 mg PO QDAY 07/13/19 08/18/19 08/17/19 Iron 1 tab PO DAILY 07/13/19 08/18/19 08/17/19 Vit-Fe Fumar-FA [ 1 tab PO DAILY 07/13/19 08/18/19 08/17/19 Vitamin] labetaloL [Labetalol 200mg TAB] 200 mg PO BID 07/13/19 08/18/19 08/18/19 Hydroxyprogesterone Caproate 07/26/19 07/21/19 [Lili] Previous Rx's Medication Instructions Recorded Last Taken Type Ibuprofen [Motrin 800 MG tab] 800 mg PO Q8HR PRN #30 tablet 08/20/19 Unknown Rx Lidocain2.5%/Prilocai2.5% [Emla] 5 gm TP ONCE PRN #1 tube 08/20/19 Unknown Rx labetaloL [Labetalol 200mg TAB] 200 mg PO BID #60 tablet 08/20/19 Unknown Rx Naproxen [Naprosyn] 500 mg PO BID #20 tablet 01/27/20 Unknown Rx Sulfamethoxazole/Trimethoprim 1 each PO BID #6 tablet 01/27/20 Unknown Rx [Bactrim DS TAB] Acetaminophen/Codeine [Tylenol 1 tab PO Q68H PRN #8 tab 09/25/21 Unknown Rx /Codeine # 3 tab] Naproxen 500 mg PO BID PRN #20 1000units 09/25/21 Unknown Rx Allergies Allergy/AdvReac Type Severity Reaction Status Date / Time cephalexin [From Keflex] Allergy Swelling Verified 09/25/21 05:15 griseofulvin Allergy Swelling Verified 09/25/21 05:15 ED Review of Systems ROS: Stated complaint: FOOT PAIN Other details as noted in HPI Musculoskeletal: joint swelling, arthralgia Neurological: abnormal gait. denies: numbness, paresthesias ED Past Medical Hx - Past Medical History Hx Hypertension: Yes Hx Congestive Heart Failure: No Hx Diabetes: No Hx Deep Vein Thrombosis: No Hx Renal Disease: No Hx Sickle Cell Disease: No Hx Seizures: No Hx Asthma: No Hx COPD: No Hx HIV: No Additional medical history: Vaginal delivery x 4 ECTOPIC - Surgical History Past Surgical History?: Yes Additional Surgical History: Removal of one tube; ectopic - Social History Smoking Status: Never Smoker Substance Use Type: Alcohol - Medications Home Medications: Home Medications Medication Instructions Recorded Confirmed Last Taken Type Aspirin [Aspirin BABY CHEW TAB] 81 mg PO QDAY 07/13/19 08/18/19 08/17/19 History Iron 1 tab PO DAILY 07/13/19 08/18/19 08/17/19 History Vit-Fe Fumar-FA [ 1 tab PO DAILY 07/13/19 08/18/19 08/17/19 History Vitamin] labetaloL [Labetalol 200mg TAB] 200 mg PO BID 07/13/19 08/18/19 08/18/19 History Hydroxyprogesterone Caproate 07/26/19 07/21/19 History [Lili] Ibuprofen [Motrin 800 MG tab] 800 mg PO Q8HR PRN #30 tablet 08/20/19 Unknown Rx Lidocain2.5%/Prilocai2.5% [Emla] 5 gm TP ONCE PRN #1 tube 08/20/19 Unknown Rx labetaloL [Labetalol 200mg TAB] 200 mg PO BID #60 tablet 08/20/19 Unknown Rx Naproxen [Naprosyn] 500 mg PO BID #20 tablet 01/27/20 Unknown Rx Sulfamethoxazole/Trimethoprim 1 each PO BID #6 tablet 01/27/20 Unknown Rx [Bactrim DS TAB] Acetaminophen/Codeine [Tylenol 1 tab PO Q68H PRN #8 tab 09/25/21 Unknown Rx /Codeine # 3 tab] Naproxen 500 mg PO BID PRN #20 1000units 09/25/21 Unknown Rx ED Physical Exam - General Limitations: Physical Limitation General appearance: alert, in no apparent distress, obese - Head Head exam: Present: atraumatic, normocephalic - Eye Eye exam: Present: normal appearance - Respiratory Respiratory exam: Absent: respiratory distress - Cardiovascular Cardiovascular Exam: Present: regular rate - Extremities Exam Extremities exam: Present: other (Swelling and tenderness to palpation noted to the left lateral ankle and the top of the foot without skin changes or erythema noted; range of motion is limited of the left ankle and patient unable to bear weight on it; normal pedal pulse seen perfusion of the toes noted) ED Course Vital Signs 09/25/21 09/25/21 09/25/21 05:18 07:03 11:17 Temperature 99.0 F Pulse Rate 86 69 Respiratory 19 14 Rate Blood Pressure 134/85 Blood Pressure 145/90 [Right] O2 Sat by Pulse 97 Oximetry ED Medical Decision Making - Radiology Data Radiology results: report reviewed LEFT ANKLE 3 VIEWS INDICATION: lateral and talar pain after twist injury. COMPARISON: None. IMPRESSION: There is moderate to severe lateral soft tissue swelling. No acute osseous injury is appreciated. Early osteoarthritic changes are identified. - Medical Decision Making 36-year-old -[place] female patient presents with complaints of left ankle pain and swelling after a twist and fall injury yesterday. She rates her pain as a 10/10 in severity and states she is unable to walk on it due to the pain. No numbness/tingling or skin changes per patient. Drug allergies include Keflex. Ibuprofen at home not helping with pain per patient. X-rays negative for any fractures. We will treat for ankle sprain with rice method, NSAIDs, and crutches. Recommend follow-up with orthopedics as needed. She is otherwise well-appearing and stable for discharge home. Signs and symptoms that should prompt immediate return to the ED were discussed in detail with patient who verbalizes understanding Critical care attestation.: If time is entered above; I have spent that time in minutes in the direct care of this critically ill patient, excluding procedure time. ED Disposition Clinical Impression: Left ankle injury Disposition: HOME / SELF CARE / HOMELESS Is pt being admited?: No Condition: Stable Instructions: Ankle Sprain, [id number] Prescriptions: Naproxen 500 mg PO BID PRN #20 1000units PRN Reason: pain Acetaminophen/Codeine [Tylenol /Codeine # 3 tab] 1 tab PO Q68H PRN #8 tab PRN Reason: Pain , Severe (7-10) Referrals: PRIMARY CARE, [Primary Care Provider] - 3-5 Days [facility] [Provider Group] - 3-5 Days Forms: Work/School Release Form(ED)
--- NOTE | 2021-09-25 08:23 | XRay Report ---
LEFT ANKLE 3 VIEWS INDICATION: lateral and talar pain after twist injury. COMPARISON: None. IMPRESSION: There is moderate to severe lateral soft tissue swelling. No acute osseous injury is ap preciated. Early osteoarthritic changes are identified. Signer Name: Kike Quinteros Jr, MD Signed: 09/25/2021 8:19 AM Workstation Name: [id number]
[2021-09-25 11:18] VITALS: BP 145/90
== END 2021-09-25 11:20 | disposition home or self-care (01) ==
LOC: ED 04:40
DX: S99.912A Unspecified injury of left ankle, initial encounter (principal); W18.30XA Fall on same level, unspecified, initial encounter; Y93.89 Activity, other specified; Y92.89 Other specified places as the place of occurrence of the external cause; Y99.8 Other external cause status
CPT/HCPCS: 99283

== ENCOUNTER 2021-12-26 08:31 | Outpatient (CLI) | payer OTHER ==
--- NOTE | 2021-12-26 10:23 | Ultrasound Report ---
ULTRASOUND BREAST LEFT LIMITED, 12/26/2021 CLINICAL INFORMATION / INDICATION: N63.22 UNSPECIFIED LUMO IN LEFT BREAST. TECHNIQUE: Targeted ultrasound evaluation was performed of the area of interest. COMPARISON: Breast MRI dated 11/20/2020, left breast ultrasound dated 10/29/2020 and 10/11/2020 FINDINGS: There is normal fibroglandular tissue without evidence of mass, focal fluid collection, or architectu ral distortion. IMPRESSION: No sonographic evidence of malignancy. Follow up recommendation: Unless otherwise clinically indicated, recommend patient return to routine screening mammography at age 40. BI-RADS Category 1: NEGATIVE. A normal or "negative" report should not preclude biopsy or follow-up of a clinically suspicious find ing. Signer Name: Mehrdad Youssef DO Signed: 12/26/2021 10:19 AM Workstation Name: [id number]
--- NOTE | 2021-12-26 17:34 | Mammography Report ---
DIGITAL SCREENING MAMMOGRAM WITH CAD, 12/26/2021 CLINICAL INFORMATION / INDICATION: Routine screening TECHNIQUE: Digital bilateral 2D mammography was obtained in the craniocaudal and mediolateral obliqu e projections. This examination was interpreted with the benefit of Computer-Aided Detection analysis . COMPARISON: 09/27/2020 FINDINGS: Breast Density: The breasts are almost entirely fatty. No dominant mass, suspicious calcifications, or architectural distortion in either breast. Left density is stable. IMPRESSION: No mammographic evidence of malignancy. Follow up recommendation: Routine yearly BI-RADS Category 2: BENIGN. A "normal" or negative report should not discourage follow up or biopsy of a clinically significant f inding. A written summary of these findings will be mailed to the patient. The patient will be entered into a mammography reporting system which will generate a reminder letter for the patient's next appointmen t at the appropriate interval. The [employer] recommends yearly mammograms starting at age 40 and continuing as l aquilino as a woman is in good health. Breast MRI is recommended for women with an approximate 20-25% or greater lifetime risk of breast cancer, including women with a strong family history of breast or ova amor cancer or who have been treated for Hodgkin's disease. Signer Name: Steven Bangura MD Signed: 12/26/2021 5:29 PM Workstation Name: [id number]
== END 2021-12-26 08:32 | disposition home or self-care (01) ==
LOC: MAMMO 08:31
PROVIDERS: ATTEND Surgery
DX: Z12.31 Encounter for screening mammogram for malignant neoplasm of breast (principal); N63.22 Unspecified lump in the left breast, upper inner quadrant
CPT/HCPCS: 77067

== ENCOUNTER 2022-04-30 11:04 | Outpatient (CLI) | payer OTHER ==
[2022-04-30 11:52] LABS: Bacteria,Urine 2+ /HPF (Negative); Mucus,Urine 1+ /HPF
[2022-04-30 12:04] LABS: Color,Urine Straw (Yellow)
== END 2022-04-30 11:05 | disposition home or self-care (01) ==
LOC: LABHHL 11:04
PROVIDERS: ATTEND Internal Medicine
DX: N39.0 Urinary tract infection, site not specified (principal)
CPT/HCPCS: 81001; 87086